=== PATIENT | female | born 1985 | race Caucasian/White ===

== ENCOUNTER → 2017-11-25 10:40 | Outpatient (CLI) | payer OTHER, SELFPAY ==
[2017-11-25 16:21] LABS: Pregnancy, Serum, hCG Quali. NEGATIVE Negative (0-9 Nonpreg)
== END ==
PROVIDERS: Visit Provider Obstetrics & Gynecology
DX: N91.2 Amenorrhea, unspecified (principal)
CPT/HCPCS: 36415; 84703

== ENCOUNTER → 2018-03-17 11:38 | Outpatient (CLI) | payer OTHER, SELFPAY ==
[2018-03-17 19:30] LABS: Follicle Stimulating Hormone 3.5 mIU/mL; Luteinizing Hormone 4.2 mIU/mL; T4 Free Direct 0.86 ng/dL (0.76-1.46)
[2018-03-22 16:28] LABS: HPV Reflexed? NOT INDICATED
== END ==
PROVIDERS: Visit Provider Obstetrics & Gynecology
DX: N92.6 Irregular menstruation, unspecified (principal); Z12.4 Encounter for screening for malignant neoplasm of cervix
CPT/HCPCS: 36415; 83001; 83002; 84439; 84443; 88175; G0145

== ENCOUNTER → 2018-04-12 13:10 | Outpatient (CLI) | payer OTHER, SELFPAY ==
[2018-04-12 14:20] LABS: Progesterone Level 22.71 ng/mL (See Comment)
== END ==
PROVIDERS: Visit Provider Obstetrics & Gynecology
DX: N97.0 Female infertility associated with anovulation (principal)
CPT/HCPCS: 36415; 84144

== ENCOUNTER → 2018-05-12 13:37 | Outpatient (CLI) | payer OTHER, SELFPAY ==
[2015-12-04 13:23] VITALS: BMI 17.6
[2018-05-12 18:08] LABS: Progesterone Level 19.17 ng/mL (See Comment)
== END ==
PROVIDERS: Visit Provider Obstetrics & Gynecology
DX: N97.0 Female infertility associated with anovulation (principal)
CPT/HCPCS: 36415; 84144

== ENCOUNTER → 2018-06-14 13:40 | Outpatient (CLI) | payer OTHER, SELFPAY ==
[2015-12-04 13:23] VITALS: BMI 17.6
== END ==
PROVIDERS: Visit Provider Obstetrics & Gynecology
DX: N97.0 Female infertility associated with anovulation (principal)
CPT/HCPCS: 36415

== ENCOUNTER → 2018-07-15 | Outpatient (CLI) | payer OTHER, SELFPAY ==
[2015-12-04 13:23] VITALS: BMI 17.6
[2018-07-15 14:21] LABS: Progesterone Level 21.95 ng/mL (See Comment)
== END | disposition home or self-care (01) ==
LOC: WOBLAB 10:58
PROVIDERS: Visit Provider Obstetrics & Gynecology
DX: N97.0 Female infertility associated with anovulation (principal)
CPT/HCPCS: 36415; 84144

== ENCOUNTER → 2018-08-18 | Outpatient (CLI) | payer OTHER, SELFPAY ==
[2018-08-18 11:25] LABS: Progesterone Level 14.74 ng/mL (See Comment)
== END | disposition home or self-care (01) ==
LOC: WOBLAB 09:07
PROVIDERS: Visit Provider Obstetrics & Gynecology
DX: N97.0 Female infertility associated with anovulation (principal)
CPT/HCPCS: 36415; 84144

== ENCOUNTER → 2019-02-09 10:51 | Outpatient (CLI) | payer OTHER, SELFPAY ==
[2015-12-04 13:23] VITALS: BMI 17.6
[2019-02-09 15:45] LABS: Chlamydia Trachomatis by PCR Negative (Negative); Neisserai gonorrhoeae by PCR Negative (Negative); Probe Check PASS; Sample Adequacy Control PASS; Specimen Processing Control PASS
== END ==
PROVIDERS: Visit Provider Obstetrics & Gynecology
DX: Z34.81 Encounter for supervision of other normal pregnancy, first trimester (principal); Z11.3 Encounter for screening for infections with a predominantly sexual mode of transmission
CPT/HCPCS: 87491; 87591

== ENCOUNTER → 2019-02-23 11:31 | Outpatient (CLI) | payer OTHER, SELFPAY ==
[2019-02-23 16:06] LABS: Absolute Lymphocyte Count 1.77 X10^3/uL (0.83-4.51); Absolute Neutrophil Count 4.4 X10^3/uL (2.0-7.7); Basophil# 0.06 X10^3/uL; Basophil% 0.9 % (0-1); Eosinophils% 1.5 % (0-5); Hematocrit 42.3 % (37-47); Hemoglobin 13.6 g/dL (12.0-15.0); Lymphocyte # 1.77 X10^3/ul (4.0); Mean Corp Hgb Conc 32.2 g/dL (32-36); Mean Corpuscular Hgb 28.7 pg (27.0-32.0); Mean Corpuscular Volume 89.2 fL (81-99); Mean Platelet Vol. 10.3 fl (6.2-12.0); Monocyte# 0.44 X10^3/uL; Monocyte% 6.5 % (0-10); NRBC Flagged by Analyzer 0 % (0-5); Neutrophil # 4.42 X10^3/uL (2.7-7.7); Platelet Count 325 K/mm3 (150-450); RBC Distribution Width CV 12.5 % (11.6-14.6); RBC Distribution Width SD 41.1 fl (35.1-43.9); Red Blood Count 4.74 M/mm3 (4.2-5.4); White Blood Count 6.8 K/mm3 (4.4-11.0)
[2019-02-23 16:26] LABS: Thyroid Stim Hormone (TSH) 1.04 uIU/mL (0.358-3.74)
[2019-02-23 17:34] LABS: Color, Urine Yellow (Yellow); Glucose, Dipstick Normal (Normal); Ketone-Dipstick Negative (Negative); Leukocyte Esterase-Dipstick 500 /ul (Negative); Nitrite-Dipstick Negative (Negative); Occult Blood-Urine Negative /ul (Negative); Protein-Dipstick Negative (Negative); Urine Bilirubin Dipstick Negative (Negative); Urine Clarity Clear (Clear); Urine Urobilinogen Normal (Normal); Urine pH 6.5 (5.0 - 8.0)
[2019-02-23 17:50] LABS: Amphetamine Urine VISTA NEGATIVE (<1000 ng/mL); Barbiturate Urine VISTA NEGATIVE (< 200 ng/mL); Benzodiazepine Urine VISTA NEGATIVE (< 200 ng/mL); Cocaine Urine VISTA NEGATIVE (< 300 ng/mL); Ecstacy Urine VISTA NEGATIVE (< 500 ng/mL); Methadone Urine VISTA NEGATIVE (< 300 ng/mL); PCP Urine VISTA NEGATIVE (< 25 ng/mL); THC Urine VISTA NEGATIVE (< 50 ng/mL); Vista UDS pH Range 6
[2019-02-24 01:49] LABS: Prenatal RPR NONREACTIVE (NONREACTIVE)
[2019-02-24 10:50] LABS: HIV - WCH Non-Reactive (Nonreactive); Hepatitis B Surface Antigen Non-Reactive (Nonreactive); Hepatitis C Antibody Non-Reactive (Nonreactive)
== END ==
PROVIDERS: Visit Provider Obstetrics & Gynecology
DX: Z34.81 Encounter for supervision of other normal pregnancy, first trimester (principal)
CPT/HCPCS: 36415; 80307; 81002; 84443; 85025; 86703; 86762; 86803; 87340

== ENCOUNTER 2019-03-23 02:33 | Emergency (ER) | payer OTHER, SELFPAY ==
[2019-03-23 02:34] VITALS: BP 119/70; PULSE 71; RESP 18; TEMP 37.1; O2SAT 100; BMI 22.6
[2019-03-23] MEDS: miSOPROStol 200 MCG Tablet 600 MCG PO (03:39)
--- NOTE | 2019-03-23 03:47 | ED.VIS.FEGU ---
History of Present Illness Chief Complaint: Vag Bld, Preg Informant: Patient Narrative: Patient presenting for evaluation due to concern for a miscarriage. Patient reports that she is 13 weeks , a G2, P1. Patient states that over the course of the last 3 days she has had some brown vaginal discharge. She reports that this evening an hour or 2 prior to arrival she had a large gush of fluid, and some bleeding, as well as some pelvic cramping. She does believe that she is passing some clots and/or tissue. Patient has never had a miscarriage in the past. She is unsure about her blood type. Pain is mild with no exacerbating relieving factors. Review of systems otherwise negative. Past Medical History - Allergies and Home Meds Allergies/Adverse Reactions: Allergies sulfamethoxazole [From ] Allergy (Verified 03/23/19 02:38) Hives trimethoprim [From ] Allergy (Verified 03/23/19 02:38) Hives Primary Care Physician: Care Physician,No Primary [Primary Care Provider] - Past Medical History: None Smoking Status: Never smoker Review of Systems All systems negative except as indicated General: Denies: Chills, Fever, Sweats Eyes: Denies: Visual changes - bilaterally, Diplopia ENT: Denies: Rhinorrhea, Sore throat Cardiovascular: Denies: Chest pain, Palpitations Respiratory: Denies: Dyspnea, Cough, Dyspnea on exertion Gastrointestinal: Denies: Abdominal pain, Nausea, Vomiting, Diarrhea, Melena, Hematochezia Genitourinary: Reports: - - Vaginal discharge and loss of fluid, passage of clots and possibly tissue Musculoskeletal: Denies: Back pain, Extremity Pain Skin: Denies: Rash, Wounds Neurological: Denies: Headache, Weakness, Numbness Physical Exam Vital Signs/Narrative: Vital Signs Temp Pulse Resp BP Pulse Ox 03/23/19 02:34 98.7 F 71 18 119/70 100 Inital Vital Signs reviewed: Yes General: Well nourished, Well developed Head: Normocephalic, Atraumatic Eyes: Perrl, EOMI ENT: Moist mucous membranes, No rhinorrhea Neck: Supple, Nontender Cardiovascular: Regular rate, Regular rhythm, No murmurs Respiratory: No distress, CTA bilaterally, Chest nontender Abdomen: Tender - Very minimal suprapubic tenderness with mild predominance to the left, no guarding or rebound : Speculum exam: Normal external genitalia, No vaginal lesions, No vaginal discharge, No blood in vault, No active bleeding Bimanual exam: No cervical motion tenderness, Os closed, Normal size uterus, Nontender uterus Back: Nontender, Normal Inspection Extremities: Nontender, No edema Skin: Normal color, No rash Neurological: Alert, Oriented x3, Cranial nerves II-XII grossly intact, Normal Strength, Normal Sensation Psychological: Normal affect Diagnostic/Tx/Re-eval - Medical Decision/Diagnostic Studies Patient presented with symptomatology that would be concerning for the possibility of a miscarriage. I confirmed the patient's blood type and it is a positive. Quantitative hCG is sent and is pending. I performed to bedside ultrasounds to confirm diagnosis, and ultimately saw a thickened endometrium with some heterogeneous fluid within the endometrium as well as the vaginal canal but no evidence of a 13-week gestation. This is consistent with a miscarriage. I discussed the patient's case on the telephone with covering [employer] AUT[employer] ARCHITECT Dr. Chavez. She recommended administering Cytotec to the patient which was given in the emergency department. Patient already has follow-up with the hooking machine operator tomorrow, she was recommended to keep this. She was informed of signs and symptoms for which to return to the emergency department. She voiced understanding of this and the patient was discharged. Disposition: Home ED Disposition - Plan for ED Patient: Disposition: Home or Assisted Living Diagnosis: Miscarriage Instructions: Miscarriage Referrals: Zhane Valencia MD [STAFF PHYSICIAN] - Keep Mena appointment
[2019-03-23 03:48] LABS: hCG Titer Quant., Serum 948 mIU/mL (1-3)
[2019-03-23 04:12] VITALS: PULSE 70; RESP 16; O2SAT 98
== END 2019-03-23 04:00 | disposition home or self-care (01) ==
PROVIDERS: Emergency Provider Emergency Medicine
DX: O03.9 Complete or unspecified spontaneous abortion without complication (principal)
CPT/HCPCS: 84702; 99283; A4216

== ENCOUNTER → 2019-03-28 10:43 | Outpatient (CLI) | payer OTHER, SELFPAY ==
[2019-03-23 02:34] VITALS: BMI 22.6
[2019-03-28 14:29] LABS: hCG Titer Quant., Serum 58 mIU/mL (1-3)
== END ==
PROVIDERS: Visit Provider Obstetrics & Gynecology
DX: O03.9 Complete or unspecified spontaneous abortion without complication (principal)
CPT/HCPCS: 36415; 84702

== ENCOUNTER → 2019-04-04 11:07 | Outpatient (CLI) | payer OTHER, SELFPAY ==
[2019-03-23 02:34] VITALS: BMI 22.6
[2019-04-04 12:40] LABS: hCG Titer Quant., Serum 13 mIU/mL (1-3)
== END ==
PROVIDERS: Visit Provider Obstetrics & Gynecology
DX: Z87.59 Personal history of other complications of pregnancy, childbirth and the puerperium (principal)
CPT/HCPCS: 36415; 84702

== ENCOUNTER → 2019-04-14 11:25 | Outpatient (CLI) | payer OTHER, SELFPAY ==
[2019-03-23 02:34] VITALS: BMI 22.6
[2019-04-14 13:55] LABS: hCG Titer Quant., Serum 5 mIU/mL (1-3)
== END ==
PROVIDERS: Visit Provider Obstetrics & Gynecology
DX: O02.1 Missed abortion (principal)
CPT/HCPCS: 36415; 84702

== ENCOUNTER → 2019-07-19 | Outpatient (CLI) | payer OTHER, SELFPAY ==
[2019-07-19 20:01] LABS: Chlamydia Trachomatis by PCR Negative (Negative); Neisserai gonorrhoeae by PCR Negative (Negative); Probe Check PASS; Sample Adequacy Control PASS; Specimen Processing Control PASS
== END | disposition home or self-care (01) ==
PROVIDERS: Referring Provider Obstetrics & Gynecology; Visit Provider Obstetrics & Gynecology
DX: Z34.81 Encounter for supervision of other normal pregnancy, first trimester (principal); Z11.3 Encounter for screening for infections with a predominantly sexual mode of transmission
CPT/HCPCS: 87491; 87591

== ENCOUNTER → 2019-08-10 14:10 | Outpatient (CLI) | payer SELFPAY ==
[2019-08-10 14:30] LABS: Absolute Lymphocyte Count 2.06 X10^3/uL (0.83-4.51); Absolute Neutrophil Count 5.1 X10^3/uL (2.0-7.7); Basophil# 0.03 X10^3/uL; Basophil% 0.4 % (0-1); Eosinophil# 0.06 X10^3/uL; Eosinophils% 0.8 % (0-5); Hematocrit 37.8 % (37-47); Hemoglobin 12.3 g/dL (12.0-15.0); Lymphocyte # 2.06 X10^3/ul (4.0); Lymphocyte % 26.6 % (19-41); Mean Corp Hgb Conc 32.5 g/dL (32-36); Mean Corpuscular Hgb 28.7 pg (27.0-32.0); Mean Corpuscular Volume 88.1 fL (81-99); Mean Platelet Vol. 10.4 fl (6.2-12.0); Monocyte# 0.48 X10^3/uL; Monocyte% 6.2 % (0-10); NRBC Flagged by Analyzer 0 % (0-5); Neutrophil % 65.9 % (47-70); Platelet Count 306 K/mm3 (150-450); RBC Distribution Width SD 41.7 fl (35.1-43.9); Red Blood Count 4.29 M/mm3 (4.2-5.4); White Blood Count 7.7 K/mm3 (4.4-11.0)
[2019-08-10 14:37] LABS: Color, Urine Straw (Yellow); Glucose, Dipstick Normal (Normal); Ketone-Dipstick Negative (Negative); Leukocyte Esterase-Dipstick 500 /ul (Negative); Nitrite-Dipstick Negative (Negative); Occult Blood-Urine Negative /ul (Negative); Protein-Dipstick Negative (Negative); Urine Bilirubin Dipstick Negative (Negative); Urine Clarity Clear (Clear); Urine Urobilinogen Normal (Normal)
[2019-08-10 14:47] LABS: Amphetamine Urine VISTA NEGATIVE (<1000 ng/mL); Barbiturate Urine VISTA NEGATIVE (< 200 ng/mL); Benzodiazepine Urine VISTA NEGATIVE (< 200 ng/mL); Cocaine Urine VISTA NEGATIVE (< 300 ng/mL); Ecstacy Urine VISTA NEGATIVE (< 500 ng/mL); Methadone Urine VISTA NEGATIVE (< 300 ng/mL); PCP Urine VISTA NEGATIVE (< 25 ng/mL); THC Urine VISTA NEGATIVE (< 50 ng/mL); Vista UDS pH Range 6
[2019-08-10 15:19] LABS: Thyroid Stim Hormone (TSH) 1.31 uIU/mL (0.358-3.74)
[2019-08-10 16:13] LABS: HIV - WCH Non-Reactive (Nonreactive); Hepatitis B Surface Antigen Non-Reactive (Nonreactive); Hepatitis C Antibody Non-Reactive (Nonreactive); Rubella IgG 286.7 IU/mL
[2019-08-11 03:39] LABS: Prenatal RPR NONREACTIVE (NONREACTIVE)
== END ==
PROVIDERS: Visit Provider Obstetrics & Gynecology
DX: Z34.81 Encounter for supervision of other normal pregnancy, first trimester (principal)
CPT/HCPCS: 80307; 81002; 84443; 85025; 86703; 86762; 86803; 87340

== ENCOUNTER → 2019-08-26 | Outpatient (CLI) | payer SELFPAY ==
[2019-08-26 17:25] LABS: Bacteria 0 SEEN /hpf (None Seen); Mucous, Urine 0 SEEN /hpf (<or=2+); Red Blood Cells-Urine 0 SEEN /hpf (0-5)
[2019-08-26 18:09] LABS: Color, Urine Yellow (Yellow); Glucose, Dipstick Normal (Normal); Ketone-Dipstick Negative (Negative); Leukocyte Esterase-Dipstick 25 /ul (Negative); Nitrite-Dipstick Negative (Negative); Occult Blood-Urine Negative /ul (Negative); Protein-Dipstick Negative (Negative); Urine Bilirubin Dipstick Negative (Negative); Urine Clarity Clear (Clear); Urine Urobilinogen Normal (Normal)
[2019-08-26 18:48] LABS: Squamous Epithelial Cells - UA 0-5 SEEN /hpf (5-10); White Blood Cells 0-5 SEEN /hpf (0-5)
== END | disposition home or self-care (01) ==
LOC: LABSPEC 15:39
DX: Z34.81 Encounter for supervision of other normal pregnancy, first trimester (principal); R30.0 Dysuria
CPT/HCPCS: 81001; 87086

== ENCOUNTER → 2019-09-07 | Outpatient (CLI) | payer OTHER, SELFPAY ==
[2019-09-07 17:50] LABS: Bacteria 0 SEEN /hpf (None Seen); Mucous, Urine 0 SEEN /hpf (<or=2+); Red Blood Cells-Urine 0 SEEN /hpf (0-5); White Blood Cells 0 SEEN /hpf (0-5)
[2019-09-07 18:13] LABS: Color, Urine Yellow (Yellow); Glucose, Dipstick Normal (Normal); Ketone-Dipstick Negative (Negative); Leukocyte Esterase-Dipstick Negative /ul (Negative); Nitrite-Dipstick Negative (Negative); Occult Blood-Urine Negative /ul (Negative); Protein-Dipstick Negative (Negative); Urine Bilirubin Dipstick Negative (Negative); Urine Clarity Clear (Clear); Urine Urobilinogen Normal (Normal)
[2019-09-07 18:39] LABS: Squamous Epithelial Cells - UA 0-5 SEEN /hpf (5-10)
== END | disposition home or self-care (01) ==
PROVIDERS: Visit Provider Obstetrics & Gynecology
DX: Z34.82 Encounter for supervision of other normal pregnancy, second trimester (principal)
CPT/HCPCS: 81001; 87086; 87088

== ENCOUNTER → 2019-11-28 10:50 | Outpatient (CLI) | payer OTHER, SELFPAY ==
[2019-11-28 16:05] LABS: Hematocrit 30.5 % (37-47); Hemoglobin 9.8 g/dL (12.0-15.0); Mean Corp Hgb Conc 32.1 g/dL (32-36); Mean Corpuscular Hgb 31.2 pg (27.0-32.0); Mean Corpuscular Volume 97.1 fL (81-99); Mean Platelet Vol. 9.8 fl (6.2-12.0); Platelet Count 274 K/mm3 (150-450); RBC Distribution Width CV 14.3 % (11.6-14.6); Red Blood Count 3.14 M/mm3 (4.2-5.4); White Blood Count 8.4 K/mm3 (4.4-11.0)
[2019-11-28 16:11] LABS: Glucose Challenge Gest 1H 50g 117 mg/dL (70-140)
== END ==
PROVIDERS: Visit Provider Obstetrics & Gynecology
DX: Z34.82 Encounter for supervision of other normal pregnancy, second trimester (principal)
CPT/HCPCS: 36415; 82950; 85027

== ENCOUNTER 2020-01-16 16:24 | Outpatient (CLI) | payer OTHER, SELFPAY ==
[2020-01-16 16:48] VITALS: BMI 24.5
--- NOTE | 2020-01-16 17:02 | OB.TRI.PN_ITS ---
Progress Notes Date of Service: 01/16/20 Progress Note: CC: NST HPI: 34 yo at 33/4w di/di twins presenting for NST for BPP 6/8 for baby B, BPP 8/8 for A. complicated by: di/di twins with polyhydramnios OBHx: G1: 39w G2: 13w SAB G3: current Medical Hx: Denies Surgical Hx: tonsillectomy and adenoidectomy, tympanostomy tube Medications: PNV, magnesium Allergies: bactrim Objective: PE per RN NST: Baby A: 140/mod lilly/+accel/no decel Baby B: 145/mod lilly/+accel/no decel [place]: quiet A/P: yo at 33/4w di/di twins presenting for NST for BPP 6/8 for baby B, BPP 8/8 for A. Total NST Baby A 12/23, baby B 10/23. Follow up with routine visit BPP/visit on .
== END 2020-01-16 17:01 | disposition home or self-care (01) ==
LOC: WPOUT 16:25 → OBT 16:25
PROVIDERS: Referring Provider Student in an Organized Health Care Education/Training Program; Visit Provider Student in an Organized Health Care Education/Training Program
DX: O40.3XX0 Polyhydramnios, third trimester, not applicable or unspecified (principal); O30.043 Twin pregnancy, dichorionic/diamniotic, third trimester; Z3A.33 33 weeks gestation of pregnancy
CPT/HCPCS: 59025; 59050; 99218; G0378

== ENCOUNTER 2020-01-19 12:35 | Outpatient (CLI) | payer SELFPAY ==
[2020-01-19 12:56] VITALS: BP 112/72; PULSE 86; TEMP 36.7; O2SAT 99
[2020-01-19 13:00] VITALS: BMI 24.3
[2020-01-19 14:30] VITALS: RESP 18
--- NOTE | 2020-01-20 08:37 | OB.TRI.NOTE ---
History of Present Illness Date of Service: 01/19/20 Was patient seen by the physician?: No Reason For Visit: NST FOR TWINS Date of Service: 01/19/20 Final EMMANUEL: 02/28/20 Gestational age: 34 Weeks and 3 Days History of Present Illness: 34-year-old with twins. Seen in office today for ultrasound. Unsure heart tone baseline. Sent over for extended monitoring and NST. Allergies sulfamethoxazole [From ] Allergy (Verified 01/19/20 13:30) Hives trimethoprim [From Novra] Allergy (Verified 01/19/20 13:30) Hives Physical Exam Vitals: Vital Signs Temp Pulse Resp BP Pulse Ox 98.1 F 86 18 112/72 99 01/19/20 12:56 01/19/20 12:56 01/19/20 14:30 01/19/20 12:56 01/19/20 12:56 NST - FHR Rate Baby A Baseline: 130 Variability:: Moderate Accelerations:: 15 x 15 Decelerations:: None NST Reactive:: Yes Uterine Activity:: Intermittent - FHR Rate Baby B Baseline: 140 Variability:: Moderate Accelerations:: 15 x 15 Decelerations:: None NST Reactive:: Yes Uterine Activity:: Intermittent Impression/Plan 34-year-old G3, P1 at 34 weeks and 2 days with twin sent from office with ultrasound today in office and uncertain baseline heart rates. After extended monitoring and reactive NST all reassuring. Okay to discharge home
== END 2020-01-19 14:30 | disposition home or self-care (01) ==
LOC: WPOUT 12:41 → WP 12:41
PROVIDERS: Visit Provider Obstetrics & Gynecology
DX: O30.003 Twin pregnancy, unspecified number of placenta and unspecified number of amniotic sacs, third trimester (principal); Z3A.34 34 weeks gestation of pregnancy
CPT/HCPCS: 59025; 59050; 99218; G0378

== ENCOUNTER 2020-01-21 09:57 | Outpatient (CLI) | payer SELFPAY ==
[2020-01-21 10:08] VITALS: BP 100/59; PULSE 88; TEMP 36.6; O2SAT 98
[2020-01-21 10:15] VITALS: BMI 24.3
--- NOTE | 2020-02-08 09:14 | OB.TRI.NOTE ---
History of Present Illness Was patient seen by the physician?: No Reason For Visit: NST FOR TWINS Date of Service: 01/21/20 Final EMMANUEL: 02/28/20 Final EMMANUEL Source: US <20 weeks Gestational age: 34 Weeks and 4 Days History of Present Illness: 34+ week intrauterine presents for routine nonstress test for twins. Allergies sulfamethoxazole [From Novra] Allergy (Verified 01/31/20 19:13) Hives trimethoprim [From Novra] Allergy (Verified 01/31/20 19:13) Hives Physical Exam Vitals: Vital Signs Temp Pulse BP Pulse Ox 97.9 F 88 100/59 L 98 01/21/20 10:08 01/21/20 10:08 01/21/20 10:08 01/21/20 10:08 NST - FHR Rate Baby A NST Reactive:: Yes FHR Category:: Category I - FHR Rate Baby B NST Reactive:: Yes FHR Category:: Category I Impression/Plan 34+ week twin gestation with reactive nonstress test x2. Continuing present care.
== END 2020-01-21 10:45 | disposition home or self-care (01) ==
PROVIDERS: Visit Provider Obstetrics & Gynecology
DX: O30.003 Twin pregnancy, unspecified number of placenta and unspecified number of amniotic sacs, third trimester (principal); Z3A.34 34 weeks gestation of pregnancy
CPT/HCPCS: 59025; 59050; 99218; G0378

== ENCOUNTER 2020-01-30 15:55 | Outpatient (CLI) | payer SELFPAY ==
[2020-01-30 16:15] VITALS: BP 108/65; PULSE 78; TEMP 36.9; O2SAT 100
[2020-01-30 16:29] VITALS: BP 112/64; PULSE 74
[2020-01-30 16:35] VITALS: BMI 25.7
[2020-01-30 16:44] VITALS: BP 108/65; PULSE 78
[2020-01-30 17:08] LABS: Hematocrit 34.5 % (37-47); Hemoglobin 11.2 g/dL (12.0-15.0); Mean Corp Hgb Conc 32.5 g/dL (32-36); Mean Corpuscular Hgb 30.9 pg (27.0-32.0); Mean Corpuscular Volume 95.3 fL (81-99); Mean Platelet Vol. 10.3 fl (6.2-12.0); Platelet Count 152 K/mm3 (150-450); RBC Distribution Width CV 14.2 % (11.6-14.6); RBC Distribution Width SD 49.6 fl (35.1-43.9); Red Blood Count 3.62 M/mm3 (4.2-5.4); White Blood Count 5.6 K/mm3 (4.4-11.0)
[2020-01-30 17:14] LABS: Protein, Urine (Random) 49.3 mg/dL (<11.9); Protein:Creat Ratio 404 mg/g CRE (0-200)
--- NOTE | 2020-01-30 17:59 | PCM.PN.BLA ---
Progress Note Di/di twins, poly at 35/6w. Presented to triage for face and LE edema. Denied ALDRICH, vision changes, chest pain, RUQ pain, nausea/emesis. Reported some LUQ discomfort. complicated by: di/di twins with poly, AMA OB Hx: G1: 39 , 2w unilateral leg paralysis after, resolved spontaneously G2: SAB G3 current Medical Hx: denies Surgical Hx: T&A, tympanostomy tubes Medications: PNV, magnesium Allergies: Sulfa Social: denies tobacco, alcohol, drugs PE: Vital Signs Temp Pulse BP Pulse Ox 01/30/20 16:44 78 108/65 01/30/20 16:29 74 112/64 01/30/20 16:15 98.5 F 78 108/65 100 Per RN FHR A: 135/mod lilly/+accel/no decel FHR B: 140/mod lilly/+accel/no decel [place]: irregular A/p 35/6w twins presenting with swelling. No other signs/symptoms of pre-eclampsia. Vitals stable, not hypertensive. +Proteinuria and slightly elevated AST. Creatinine and platelets, LDH normal. Send home with precautions. Start 24 hr urine, will return tomorrow for repeat labs, BP check, NST. STROKE Vital Signs/Narrative: Vital Signs Temp Pulse BP Pulse Ox 01/30/20 16:44 78 108/65 01/30/20 16:29 74 112/64 01/30/20 16:15 98.5 F 78 108/65 100
[2020-01-30 18:03] LABS: ALB/GLOB Ratio 0.7 RATIO (0.9-2.4); AST(SGOT) 49 U/L (15-37); Alanine Aminotransfer ALT/SGPT 54 U/L (13-56); Albumin, Serum 2.7 g/dL (3.2-5.0); Alkaline Phosphatase 214 U/L (45-117); Anion Gap 8 (5-15); BUN 9 mg/dL (7-18); BUN/Creat Ratio 13.8 RATIO (10-20); Calcium,Total 8.3 mg/dL (8.5-10.1); Chloride 108 mmol/L (98-107); Creatinine, Serum 0.65 mg/dL (0.55-1.02); EST Glomerular Filtration Rate 109 mL/min (>60); Est Glom Filt Rate - Afr Amer 132 mL/min (>60); Estimated Creatinine Clearance 116.36 ml/min; Globulin 3.7 g/dL (2.2-4.2); Glucose 63 mg/dL (74-106); LDH 172 U/L (84-246); Potassium 4.4 mmol/L (3.5-5.1); Protein, Total 6.4 g/dL (6.4-8.2); Sodium Level 139 mmol/L (136-145)
[2020-01-31 18:51] LABS: Protein, Urine (Random) 36.5 mg/dL (<11.9); Protein:Creat Ratio 279 mg/g CRE (0-200)
== END 2020-01-30 18:25 | disposition home or self-care (01) ==
LOC: WPOUT 16:07 → WP 16:07
PROVIDERS: Visit Provider Student in an Organized Health Care Education/Training Program
DX: O30.043 Twin pregnancy, dichorionic/diamniotic, third trimester (principal); Z3A.00 Weeks of gestation of pregnancy not specified
CPT/HCPCS: 36415; 59025; 59050; 80053; 82570; 83615; 84156; 85027; 99218; G0378

== ENCOUNTER 2020-01-31 21:26 | Inpatient (IN) | payer SELFPAY ==
[2020-01-30 16:35] VITALS: BMI 25.7
[2020-01-31 18:44] VITALS: BMI 25.3
[2020-01-31] MEDS: Betamethasone/Betamethasone 30 MG/5 ML Vial 12 MG IM (18:50)
[2020-01-31 19:02] VITALS: BP 107/62; PULSE 81
[2020-01-31 19:09] LABS: Hematocrit 33.3 % (37-47); Mean Corpuscular Hgb 31.6 pg (27.0-32.0); Mean Corpuscular Volume 95.7 fL (81-99); Mean Platelet Vol. 10.4 fl (6.2-12.0); Platelet Count 153 K/mm3 (150-450); RBC Distribution Width CV 14.4 % (11.6-14.6); RBC Distribution Width SD 50.3 fl (35.1-43.9); Red Blood Count 3.48 M/mm3 (4.2-5.4); White Blood Count 5.4 K/mm3 (4.4-11.0)
[2020-01-31 19:17] VITALS: BP 122/66; PULSE 92
[2020-01-31 19:30] LABS: ALB/GLOB Ratio 0.8 RATIO (0.9-2.4); AST(SGOT) 54 U/L (15-37); Alanine Aminotransfer ALT/SGPT 62 U/L (13-56); Albumin, Serum 2.7 g/dL (3.2-5.0); Alkaline Phosphatase 218 U/L (45-117); Anion Gap 7 (5-15); BUN 11 mg/dL (7-18); BUN/Creat Ratio 15.1 RATIO (10-20); Calcium,Total 8.5 mg/dL (8.5-10.1); Chloride 111 mmol/L (98-107); Creatinine, Serum 0.73 mg/dL (0.55-1.02); EST Glomerular Filtration Rate 96 mL/min (>60); Est Glom Filt Rate - Afr Amer 116 mL/min (>60); Globulin 3.5 g/dL (2.2-4.2); Glucose 77 mg/dL (74-106); LDH 165 U/L (84-246); Potassium 3.7 mmol/L (3.5-5.1); Protein, Total 6.2 g/dL (6.4-8.2); Sodium Level 141 mmol/L (136-145)
[2020-01-31 19:32] VITALS: BP 118/70; PULSE 83
[2020-01-31 19:47] VITALS: BP 119/67; PULSE 88; TEMP 36.5; O2SAT 100
[2020-01-31 20:02] VITALS: BP 107/55; PULSE 82
--- NOTE | 2020-01-31 20:49 | PCM.HPOB.BLA ---
History and Physical Date of Admission: 01/31/20 34 yo at 36/0w, with EMMANUEL 02/28/20 by 11w US, presents for follow up labs and monitoring. Patient was seen yesterday for swelling, vitals within normal limits. However AST was slightly elevated at 49. Patient was sent home with 24 hour protein evaluation. She returned to the office for increased swelling. BPP was done which was 8/8 for both twins (vertex/transverse) with JESUS ALBERTO of about 10 and 9 for A and B respectively. She was then sent to labor and delivery to complete 24 hr urine and repeat labs. Blood pressures have been within normal limits during both stays. Today AST is slightly more elevated, as is ALT. Creatinine and platelets stable. Admit for monitoring at this time and repeat labs in AM. Denies VB, LOF, regular contractions. +FM. Denies ALDRICH, vision changes, chest pain, nausea/emesis. Reports upper abdominal pain that was originally left sided, but now is also right sided at night time when she tries to lay down and sleep. Wakes up sore in morning. This is complicated by: AMA, di/di twins with poly Obstetrical History G1: FT , had 2w of right sided LE paralysis after that resolved spontaneously G2: SAB G3: current Past Medical History Denies Medications PNV Past Surgical History Tympanostomy tubes, tonsillectomy and adenoidectomy Social History Tobacco use: denies Alcohol use: denies Illicit drug use: denies Labs Blood type: A pos Rubella: immune Hep B: neg HIV: neg RPR: nonreactive GBS: unknown, pending collection tonight Allergies Sulfa Review of Systems General: alert and oriented HEENT: denies change of vision Heart/lungs: denies CP, SOB GI: denies nausea, vomiting, dysuria, diarrhea MSK: denies calf pain, tenderness Physical Exam Vital Signs Temp Pulse BP Pulse Ox 01/31/20 20:02 82 107/55 L 01/31/20 19:47 97.7 F L 88 119/67 100 01/31/20 19:32 83 118/70 01/31/20 19:17 92 122/66 H 01/31/20 19:02 81 107/62 General: a&o x3, NAD HEENT: normocephalic, atraumatic Cardio: no JVD Resp: no increased work in breathing Abdomen: soft, gravid, nontender Extremities: minimal edema Neuro: CN 2-12 grossly intact, DTRs 2/4 bilateral, no clonus FHTA: 140/mod paulina/+accel/no decel FHT B: 135/mod paulina/+accel/no decel [place]: irregular BPP earlier today: 10/21 for both twins. Vertex/transverse. JESUS ALBERTO A about / 9. Labs Laboratory Results - last 24 hr 01/31/20 01/31/20 01/31/20 18:35 18:35 18:35 WBC 5.4 RBC 3.48 L Hgb 11.0 L Hct 33.3 L MCV 95.7 MCH 31.6 MCHC 33.0 RDW Std Deviation 50.3 H RDW Coeff of Paulina 14.4 Plt Count 153 MPV 10.4 Sodium 141 Potassium 3.7 Chloride 111 H Carbon Dioxide 23.0 Anion Gap 7 BUN 11 Creatinine 0.73 Estim Creat Clear Calc 103.60 Est GFR (MDRD) Af Amer 116 Est GFR (MDRD) Non-Af 96 BUN/Creatinine Ratio 15.1 Glucose 77 Calcium 8.5 Total Bilirubin 0.30 AST 54 H ALT 62 H Alkaline Phosphatase 218 H Ammonia 18.0 Lactate Dehydrogenase 165 Total Protein 6.2 L Albumin 2.7 L Globulin 3.5 Albumin/Globulin Ratio 0.8 L Assessment & Plan 34 yo at 36/0w, EMMANUEL 02/28/20 by 11w US, admitted for monitoring. -Patient has elevated LFTs, slightly more than yesterday, however fairly stable. AST/ALT on 01/29: 49/54. Today 01/30: AST/ALT 54/62. Creatinine stable, as well as platelet level. Ammonia was drawn today which was within normal limits. No evidence of hemolysis or hyperbilirubinemia. 24 hour urine pending at this time. Hepatitis panel also pending. -Blood pressures are stable, no other signs or symptoms of pre-eclampsia. Patient is high risk for development as she has twin gestation. -Will plan to admit for overnight observation for blood pressure, repeat lab work in am.
[2020-01-31 23:15] LABS: Group B Strep DNA By PCR Negative (Negative); Internal Control PASS; Probe Check PASS; Specimen Processing Control PASS
[2020-02-01] VITALS (82 sets, daily range): BP systolic 99–122; BP diastolic 54–66; PULSE 75–110; RESP 14–18; TEMP 36.4–37.1; O2SAT 97–100
--- NOTE | 2020-02-01 01:00 | NURSING ---
this RN gave report to ashley alvarado RN. that RN to assume care of pt at this time.
[2020-02-01 05:36] LABS: Absolute Lymphocyte Count 0.78 X10^3/uL (0.83-4.51); Absolute Neutrophil Count 4.9 X10^3/uL (2.0-7.7); Basophil# 0.03 X10^3/uL; Basophil% 0.5 % (0-1); Hematocrit 33.8 % (37-47); Lymphocyte # 0.78 X10^3/ul (4.0); Mean Corp Hgb Conc 32.5 g/dL (32-36); Mean Corpuscular Hgb 31.3 pg (27.0-32.0); Mean Platelet Vol. 10.3 fl (6.2-12.0); Monocyte# 0.17 X10^3/uL; Monocyte% 2.8 % (0-10); NRBC Flagged by Analyzer 0 % (0-5); Neutrophil # 4.92 X10^3/uL (2.7-7.7); Neutrophil % 82.4 % (47-70); Platelet Count 141 K/mm3 (150-450); RBC Distribution Width CV 14.4 % (11.6-14.6); RBC Distribution Width SD 50.1 fl (35.1-43.9); Red Blood Count 3.52 M/mm3 (4.2-5.4)
[2020-02-01 05:44] LABS: Prothrombin Time (Protime)PT. 12.2 SECONDS (11.7-14.9)
[2020-02-01 05:45] LABS: Fibrinogen 395 mg/dl (203-444); Partial Thromboplast Time 32.4 Seconds (24.1-36.2)
[2020-02-01 05:52] LABS: ALB/GLOB Ratio 0.8 RATIO (0.9-2.4); AST(SGOT) 72 U/L (15-37); Alanine Aminotransfer ALT/SGPT 73 U/L (13-56); Albumin, Serum 2.7 g/dL (3.2-5.0); Alkaline Phosphatase 221 U/L (45-117); Anion Gap 8 (5-15); BUN 11 mg/dL (7-18); BUN/Creat Ratio 16.5 RATIO (10-20); Calcium,Total 8.3 mg/dL (8.5-10.1); Chloride 109 mmol/L (98-107); Creatinine, Serum 0.67 mg/dL (0.55-1.02); EST Glomerular Filtration Rate 106 mL/min (>60); Est Glom Filt Rate - Afr Amer 128 mL/min (>60); Estimated Creatinine Clearance 112.88 ml/min; Globulin 3.5 g/dL (2.2-4.2); Glucose 101 mg/dL (74-106); LDH 172 U/L (84-246); Potassium 3.8 mmol/L (3.5-5.1); Protein, Total 6.2 g/dL (6.4-8.2); Sodium Level 139 mmol/L (136-145)
--- NOTE | 2020-02-01 08:55 | PCM.PN.OB ---
Subjective: Patient +FM. Reports contractions. No LOF, VB. reports tingling that started this morning in arms and legs. No ALDRICH, vision changes, chest pain, dyspnea, nausea/emesis. No RUQ pain. Abdomen sore as it is every morning, all over. - Physical Exam Vitals/I&O's: Vital Signs Temp Pulse BP Pulse Ox 98.2 F 78 107/64 100 02/01/20 04:00 02/01/20 04:00 02/01/20 04:00 02/01/20 04:00 Weight: 73.482 kg Body Mass Index (BMI) 25.3 General: Oriented x3, No apparent distress HEENT: Atraumatic, Normocephalic Neck: Supple Lungs: Normal air movement Cardiovascular: Regular rate Abdomen: Soft, Non Tender - Gravid, no RUQ pain Extremities: Edema - minimal Skin: No rashes Neurological: Cranial nerves II-XII grossly intact, Deep Tendon Reflexes 2+/4 and Symmetrical Psych/Mental Status: Normal Affect, Appropriate Laboratory Results 01/31/20 18:35: WBC 5.4, RBC 3.48 L, Hgb 11.0 L, Hct 33.3 L, MCV 95.7, MCH 31.6, MCHC 33.0, RDW Std Deviation 50.3 H, RDW Coeff of Paulina 14.4, Plt Count 153, MPV 10.4 01/31/20 18:35: Sodium 141, Potassium 3.7, Chloride 111 H, Carbon Dioxide 23.0, Anion Gap 7, BUN 11, Creatinine 0.73, Estim Creat Clear Calc 103.60, Est GFR (MDRD) Af Amer 116, Est GFR (MDRD) Non-Af 96, BUN/Creatinine Ratio 15.1, Glucose 77, Calcium 8.5, Total Bilirubin 0.30, AST 54 H, ALT 62 H, Alkaline Phosphatase 218 H, Lactate Dehydrogenase 165, Total Protein 6.2 L, Albumin 2.7 L, Globulin 3.5, Albumin/Globulin Ratio 0.8 L 01/31/20 18:35: Hepatitis A IgM Ab Pending, Hep Bs Antigen Pending, Hep B Core IgM Ab Pending, Hepatitis C Ab (EIA) Pending 01/31/20 18:35: Ammonia 18.0 01/31/20 21:25: Group B Strep DNA Negative, Specimen Comment Not Reportable 02/01/20 05:20: WBC 6.0, RBC 3.52 L, Hgb 11.0 L, Hct 33.8 L, MCV 96.0, MCH 31.3, MCHC 32.5, RDW Std Deviation 50.1 H, RDW Coeff of Paulina 14.4, Plt Count 141 L, MPV 10.3, Immature Gran % (Auto) 1.300 H, Neut % (Auto) 82.4 H, Lymph % (Auto) 13.0 L, [place] % (Auto) 2.8, Eos % (Auto) 0.0, Baso % (Auto) 0.5, Absolute Neuts (auto) 4.9, Absolute Lymphs (auto) 0.78 L, Nucleated RBC % 0 02/01/20 05:20: Sodium 139, Potassium 3.8, Chloride 109 H, Carbon Dioxide 22.0, Anion Gap 8, BUN 11, Creatinine 0.67, Estim Creat Clear Calc 112.88, Est GFR (MDRD) Af Amer 128, Est GFR (MDRD) Non-Af 106, BUN/Creatinine Ratio 16.5, Glucose 101, Calcium 8.3 L, Total Bilirubin 0.40, AST 72 H, ALT 73 H, Alkaline Phosphatase 221 H, Lactate Dehydrogenase 172, Total Protein 6.2 L, Albumin 2.7 L, Globulin 3.5, Albumin/Globulin Ratio 0.8 L 02/01/20 05:20: PT 12.2, INR 1.0, APTT 32.4, Fibrinogen 395 Current Medications Ampicillin Sodium 2 gm/ Sodium (Chloride) 100 mls @ 200 mls/hr IV Q4H [facility] Medical Necessity - Tobacco Use Smoking Status: Never smoker Assessment/Plan 34 yo at 36/1w admitted for monitoring overnight. Working diagnosis at this time of pre-eclampsia with severe features based on rising LFTs, with AST borderline twice the upper limit of normal and thrombocytopenia which is trending down. While patient has not had elevated blood pressures, she does have evidence of proteinura with transaminitis and thrombocytopenia. Creatinine has been stable. Coags normal today. Patient is high risk for pre-eclampsia with di/di twin gestation as well. Additionally she has polyhydramnios of both twin A and B (10.18/9.38 respectively on BPP yesterday in office). This setting with worsening thrombocytopenia and transaminitis, will diagnose and treat as severe pre-eclampsia at this time. Patient understands situation, potential NICU stay, and situation with worsening labwork. Patient agrees with plan. -Patient received celestone yesterday, repeat dose will be given tonight. -EFW on 01/22: A 2477g/B 2326g discordance 6% -Today on BSUS: Vertex/Vertex -CE 3 cm, pitocin induction. Discussed at length options for primary section vs induction of labor. Patient aware that she will deliver in OR due to twins. She is aware that she may have vaginal delivery followed by section if needed ( distress or breech presentation of baby B). R/B/A of c/sdiscussed as well. Patient elects for induction. -GBS negative on rapid, culture pending. Will tx with ampicillin until cx is back as she is <37w -Magnesium sulfate to start for seizure prophylaxis. 6 gram bolus, followed by 2g/hr -CBC, CMP q6 hours while in labor -Patient for epidural. -Plan discussed with patient and bedside RN. All questions answered.
[2020-02-01] MEDS: Lactated Ringers 1,000 ML 50 ML IV (10:04)
[2020-02-01] MEDS: Magnesium Sulfate 4gm/100mL 4 GM/100 ML IV.SOLN. IV (10:08)
[2020-02-01 10:25] LABS: Hematocrit 35.2 % (37-47); Hemoglobin 11.5 g/dL (12.0-15.0); Mean Corp Hgb Conc 32.7 g/dL (32-36); Mean Corpuscular Hgb 30.8 pg (27.0-32.0); Mean Corpuscular Volume 94.4 fL (81-99); Mean Platelet Vol. 10.2 fl (6.2-12.0); Platelet Count 167 K/mm3 (150-450); RBC Distribution Width CV 14.3 % (11.6-14.6); RBC Distribution Width SD 49.3 fl (35.1-43.9); Red Blood Count 3.73 M/mm3 (4.2-5.4); White Blood Count 6.3 K/mm3 (4.4-11.0)
[2020-02-01] MEDS: Magnesium Sulfate 4gm/100mL 2 GM/50 ML IV.SOLN. IV (10:28)
[2020-02-01] MEDS: Magnesium Sulfate 20 GM/500 ML BAG IV ×2 (10:39→20:08)
[2020-02-01 10:43] LABS: ALB/GLOB Ratio 0.8 RATIO (0.9-2.4); AST(SGOT) 74 U/L (15-37); Alanine Aminotransfer ALT/SGPT 78 U/L (13-56); Albumin, Serum 2.7 g/dL (3.2-5.0); Alkaline Phosphatase 219 U/L (45-117); Anion Gap 10 (5-15); BUN 10 mg/dL (7-18); BUN/Creat Ratio 14.1 RATIO (10-20); Calcium,Total 8.1 mg/dL (8.5-10.1); Chloride 110 mmol/L (98-107); Creatinine, Serum 0.71 mg/dL (0.55-1.02); EST Glomerular Filtration Rate 99 mL/min (>60); Est Glom Filt Rate - Afr Amer 120 mL/min (>60); Estimated Creatinine Clearance 106.52 ml/min; Globulin 3.4 g/dL (2.2-4.2); Glucose 72 mg/dL (74-106); Potassium 3.8 mmol/L (3.5-5.1); Protein, Total 6.1 g/dL (6.4-8.2); Sodium Level 140 mmol/L (136-145)
[2020-02-01] MEDS: Oxytocin 30 units/NS 500 ml 30 UNITS/500 ML IV.SOLN IV (10:49)
[2020-02-01] MEDS: Lactated Ringers 500 ML 999 ML IV (11:35)
[2020-02-01] MEDS: fentaNYL-bupivacaine (epidural) 100 ML BAG EPIDURAL ×3 (12:33→23:18)
[2020-02-01] MEDS: Ondansetron 4 MG/2 ML Vial IV (14:24)
[2020-02-01 16:36] LABS: Hematocrit 32.8 % (37-47); Hemoglobin 10.5 g/dL (12.0-15.0); Mean Corpuscular Hgb 30.9 pg (27.0-32.0); Mean Corpuscular Volume 96.5 fL (81-99); Mean Platelet Vol. 9.9 fl (6.2-12.0); Platelet Count 166 K/mm3 (150-450); RBC Distribution Width CV 14.4 % (11.6-14.6); RBC Distribution Width SD 50.5 fl (35.1-43.9); White Blood Count 6.5 K/mm3 (4.4-11.0)
[2020-02-01 16:57] LABS: ALB/GLOB Ratio 0.8 RATIO (0.9-2.4); AST(SGOT) 75 U/L (15-37); Alanine Aminotransfer ALT/SGPT 80 U/L (13-56); Albumin, Serum 2.6 g/dL (3.2-5.0); Alkaline Phosphatase 215 U/L (45-117); Anion Gap 10 (5-15); BUN 9 mg/dL (7-18); BUN/Creat Ratio 11.3 RATIO (10-20); Calcium,Total 7.6 mg/dL (8.5-10.1); Chloride 110 mmol/L (98-107); EST Glomerular Filtration Rate 86 mL/min (>60); Est Glom Filt Rate - Afr Amer 104 mL/min (>60); Estimated Creatinine Clearance 94.54 ml/min; Globulin 3.1 g/dL (2.2-4.2); Glucose 101 mg/dL (74-106); Potassium 3.6 mmol/L (3.5-5.1); Protein, Total 5.7 g/dL (6.4-8.2); Sodium Level 139 mmol/L (136-145)
[2020-02-01] MEDS: Lactated Ringers 1,000 ML 200 ML IV ×2 (17:24→23:06)
[2020-02-01 18:12] LABS: Magnesium 6.7 mg/dL (1.6-2.6)
[2020-02-01] MEDS: Betamethasone/Betamethasone 30 MG/5 ML Vial 12 MG IM (18:42)
--- NOTE | 2020-02-01 19:27 | NURSING ---
unable to chart on reflexes, lung sounds and clonus. 1515/1715 lungs cta, all reflexes +2 with no clonus. no c/o headache or visual disturbances.
--- NOTE | 2020-02-01 21:17 | PCM.PN.BLA ---
Progress Note LABOR PROGRESS NOTE Reports blurred vision on the magnesium, but feels relaxed. Denies headache, upper abdominal pain. She is comfortable with her epidural. AVSS GEN - NAD, AAO x 3 FHR A 125, moderate variability, + accelerations, no decelerations FHR B 130, moderate variability, + accelerations, no decelerations TOCO 2/10 min SVE 4.5/50/-3, CEPHALIC DTRs +2 Laboratory Tests 02/01/20 02/01/20 02/01/20 Range/Units 16:20 16:20 10:10 WBC 6.5 (4.4-11.0) K/mm3 RBC 3.40 L (4.2-5.4) M/mm3 Hgb 10.5 L (12.0-15.0) g/dL Hct 32.8 L (37-47) % MCV 96.5 (81-99) fL MCH 30.9 (27.0-32.0) pg MCHC 32.0 (32-36) g/dL RDW Std Deviation 50.5 H (35.1-43.9) fl RDW Coeff of Paulina 14.4 (11.6-14.6) % Plt Count 166 (150-450) K/mm3 MPV 9.9 (6.2-12.0) fl Immature Gran % (Auto) (0.0-0.9) % Neut % (Auto) (47-70) % Lymph % (Auto) (19-41) % [place] % (Auto) (0-10) % Eos % (Auto) (0-5) % Baso % (Auto) (0-1) % Absolute Neuts (auto) (2.0-7.7) X10^3/uL Absolute Lymphs (auto) (0.83-4.51) X10^3/uL Nucleated RBC % (0-5) % PT (11.7-14.9) SECONDS INR APTT (24.1-36.2) Seconds Fibrinogen (203-444) mg/dl Sodium 139 140 (136-145) mmol/L Potassium 3.6 3.8 (3.5-5.1) mmol/L Chloride 110 H 110 H (98-107) mmol/L Carbon Dioxide 19.0 L 20.0 L (21.0-32.0) mmol/L Anion Gap 10 10 (5-15) BUN 9 10 (7-18) mg/dL Creatinine 0.80 0.71 (0.55-1.02) mg/dL Estim Creat Clear Calc 94.54 106.52 ml/min Est GFR (MDRD) Af Amer 104 120 (>60) mL/min Est GFR (MDRD) Non-Af 86 99 (>60) mL/min BUN/Creatinine Ratio 11.3 14.1 (10-20) RATIO Glucose 101 72 L (74-106) mg/dL Calcium 7.6 L 8.1 L (8.5-10.1) mg/dL Magnesium 6.7 H* (1.6-2.6) mg/dL Total Bilirubin 0.30 0.40 (0.20-1.00) mg/dL AST 75 H 74 H (15-37) U/L ALT 80 H 78 H (13-56) U/L Alkaline Phosphatase 215 H 219 H (45-117) U/L Ammonia (11-32) umol/L Lactate Dehydrogenase (84-246) U/L Total Protein 5.7 L 6.1 L (6.4-8.2) g/dL Albumin 2.6 L 2.7 L (3.2-5.0) g/dL Globulin 3.1 3.4 (2.2-4.2) g/dL Albumin/Globulin Ratio 0.8 L 0.8 L (0.9-2.4) RATIO Group B Strep DNA (Negative) Specimen Comment Blood Type Antibody Screen 02/01/20 02/01/20 02/01/20 Range/Units 10:10 10:10 05:20 WBC 6.3 (4.4-11.0) K/mm3 RBC 3.73 L (4.2-5.4) M/mm3 Hgb 11.5 L (12.0-15.0) g/dL Hct 35.2 L (37-47) % MCV 94.4 (81-99) fL MCH 30.8 (27.0-32.0) pg MCHC 32.7 (32-36) g/dL RDW Std Deviation 49.3 H (35.1-43.9) fl RDW Coeff of Paulina 14.3 (11.6-14.6) % Plt Count 167 (150-450) K/mm3 MPV 10.2 (6.2-12.0) fl Immature Gran % (Auto) (0.0-0.9) % Neut % (Auto) (47-70) % Lymph % (Auto) (19-41) % [place] % (Auto) (0-10) % Eos % (Auto) (0-5) % Baso % (Auto) (0-1) % Absolute Neuts (auto) (2.0-7.7) X10^3/uL Absolute Lymphs (auto) (0.83-4.51) X10^3/uL Nucleated RBC % (0-5) % PT 12.2 (11.7-14.9) SECONDS INR 1.0 APTT 32.4 (24.1-36.2) Seconds Fibrinogen 395 (203-444) mg/dl Sodium (136-145) mmol/L Potassium (3.5-5.1) mmol/L Chloride (98-107) mmol/L Carbon Dioxide (21.0-32.0) mmol/L Anion Gap (5-15) BUN (7-18) mg/dL Creatinine (0.55-1.02) mg/dL Estim Creat Clear Calc ml/min Est GFR (MDRD) Af Amer (>60) mL/min Est GFR (MDRD) Non-Af (>60) mL/min BUN/Creatinine Ratio (10-20) RATIO Glucose (74-106) mg/dL Calcium (8.5-10.1) mg/dL Magnesium (1.6-2.6) mg/dL Total Bilirubin (0.20-1.00) mg/dL AST (15-37) U/L ALT (13-56) U/L Alkaline Phosphatase (45-117) U/L Ammonia (11-32) umol/L Lactate Dehydrogenase (84-246) U/L Total Protein (6.4-8.2) g/dL Albumin (3.2-5.0) g/dL Globulin (2.2-4.2) g/dL Albumin/Globulin Ratio (0.9-2.4) RATIO Group B Strep DNA (Negative) Specimen Comment Blood Type A POSITIVE Antibody Screen NEGATIVE 02/01/20 02/01/20 01/31/20 Range/Units 05:20 05:20 21:25 WBC 6.0 (4.4-11.0) K/mm3 RBC 3.52 L (4.2-5.4) M/mm3 Hgb 11.0 L (12.0-15.0) g/dL Hct 33.8 L (37-47) % MCV 96.0 (81-99) fL MCH 31.3 (27.0-32.0) pg MCHC 32.5 (32-36) g/dL RDW Std Deviation 50.1 H (35.1-43.9) fl RDW Coeff of Paulina 14.4 (11.6-14.6) % Plt Count 141 L (150-450) K/mm3 MPV 10.3 (6.2-12.0) fl Immature Gran % (Auto) 1.300 H (0.0-0.9) % Neut % (Auto) 82.4 H (47-70) % Lymph % (Auto) 13.0 L (19-41) % [place] % (Auto) 2.8 (0-10) % Eos % (Auto) 0.0 (0-5) % Baso % (Auto) 0.5 (0-1) % Absolute Neuts (auto) 4.9 (2.0-7.7) X10^3/uL Absolute Lymphs (auto) 0.78 L (0.83-4.51) X10^3/uL Nucleated RBC % 0 (0-5) % PT (11.7-14.9) SECONDS INR APTT (24.1-36.2) Seconds Fibrinogen (203-444) mg/dl Sodium 139 (136-145) mmol/L Potassium 3.8 (3.5-5.1) mmol/L Chloride 109 H (98-107) mmol/L Carbon Dioxide 22.0 (21.0-32.0) mmol/L Anion Gap 8 (5-15) BUN 11 (7-18) mg/dL Creatinine 0.67 (0.55-1.02) mg/dL Estim Creat Clear Calc 112.88 ml/min Est GFR (MDRD) Af Amer 128 (>60) mL/min Est GFR (MDRD) Non-Af 106 (>60) mL/min BUN/Creatinine Ratio 16.5 (10-20) RATIO Glucose 101 (74-106) mg/dL Calcium 8.3 L (8.5-10.1) mg/dL Magnesium (1.6-2.6) mg/dL Total Bilirubin 0.40 (0.20-1.00) mg/dL AST 72 H (15-37) U/L ALT 73 H (13-56) U/L Alkaline Phosphatase 221 H (45-117) U/L Ammonia (11-32) umol/L Lactate Dehydrogenase 172 (84-246) U/L Total Protein 6.2 L (6.4-8.2) g/dL Albumin 2.7 L (3.2-5.0) g/dL Globulin 3.5 (2.2-4.2) g/dL Albumin/Globulin Ratio 0.8 L (0.9-2.4) RATIO Group B Strep DNA Negative (Negative) Specimen Comment Not Reportable Blood Type Antibody Screen 01/31/20 01/31/20 01/31/20 Range/Units 18:35 18:35 18:35 WBC 5.4 (4.4-11.0) K/mm3 RBC 3.48 L (4.2-5.4) M/mm3 Hgb 11.0 L (12.0-15.0) g/dL Hct 33.3 L (37-47) % MCV 95.7 (81-99) fL MCH 31.6 (27.0-32.0) pg MCHC 33.0 (32-36) g/dL RDW Std Deviation 50.3 H (35.1-43.9) fl RDW Coeff of Paulina 14.4 (11.6-14.6) % Plt Count 153 (150-450) K/mm3 MPV 10.4 (6.2-12.0) fl Immature Gran % (Auto) (0.0-0.9) % Neut % (Auto) (47-70) % Lymph % (Auto) (19-41) % [place] % (Auto) (0-10) % Eos % (Auto) (0-5) % Baso % (Auto) (0-1) % Absolute Neuts (auto) (2.0-7.7) X10^3/uL Absolute Lymphs (auto) (0.83-4.51) X10^3/uL Nucleated RBC % (0-5) % PT (11.7-14.9) SECONDS INR APTT (24.1-36.2) Seconds Fibrinogen (203-444) mg/dl Sodium 141 (136-145) mmol/L Potassium 3.7 (3.5-5.1) mmol/L Chloride 111 H (98-107) mmol/L Carbon Dioxide 23.0 (21.0-32.0) mmol/L Anion Gap 7 (5-15) BUN 11 (7-18) mg/dL Creatinine 0.73 (0.55-1.02) mg/dL Estim Creat Clear Calc 103.60 ml/min Est GFR (MDRD) Af Amer 116 (>60) mL/min Est GFR (MDRD) Non-Af 96 (>60) mL/min BUN/Creatinine Ratio 15.1 (10-20) RATIO Glucose 77 (74-106) mg/dL Calcium 8.5 (8.5-10.1) mg/dL Magnesium (1.6-2.6) mg/dL Total Bilirubin 0.30 (0.20-1.00) mg/dL AST 54 H (15-37) U/L ALT 62 H (13-56) U/L Alkaline Phosphatase 218 H (45-117) U/L Ammonia 18.0 (11-32) umol/L Lactate Dehydrogenase 165 (84-246) U/L Total Protein 6.2 L (6.4-8.2) g/dL Albumin 2.7 L (3.2-5.0) g/dL Globulin 3.5 (2.2-4.2) g/dL Albumin/Globulin Ratio 0.8 L (0.9-2.4) RATIO Group B Strep DNA (Negative) Specimen Comment Blood Type Antibody Screen A/P: 34yo @ 36 03/22 wga, IOL for preeclampsia with severe features -No si/sx magnesium toxicity -No si/sx worsening preeclampsia with labs stable -Amniotomy performed with clear fluid -Maternal and statuses reassuring STROKE Vital Signs/Narrative: Vital Signs Temp Pulse Resp BP Pulse Ox 02/01/20 21:16 95 99/54 L 02/01/20 20:15 98.5 F 83 16 106/57 L 99 02/01/20 19:26 98.6 F 100 02/01/20 19:23 90 100 02/01/20 19:22 97.9 F 02/01/20 19:21 88 111/61 02/01/20 19:15 98.6 F 91 18 111/61 100 02/01/20 18:21 85 106/56 L 02/01/20 18:15 98.0 F 85 16 106/56 L 99 02/01/20 17:22 97.9 F 02/01/20 17:20 84 104/56 L 02/01/20 17:19 87 99
[2020-02-02] VITALS (80 sets, daily range): BP systolic 98–148; BP diastolic 54–95; PULSE 64–103; RESP 16–18; TEMP 36.4–37.5; O2SAT 90–100
[2020-02-02] MEDS: miSOPROStol 200 MCG Tablet 1000 MCG RECTAL (02:55)
[2020-02-02] MEDS: Oxytocin 30 units/NS 500 ml 30 UNITS/500 ML IV.SOLN 334 UNITS IV ×2 (03:02→05:30)
--- NOTE | 2020-02-02 03:16 | PCM.OPRPT ---
Vaginal Delivery Maternal Presentation: Medically Indicated Induction This is a 34-year-old female with Di/Di twins complicated by polyhydramnios. Patient was originally seen on 01/29 for increased swelling of face and lower extremities. Patient had blood work done that showed proteinuria along with an elevated AST and thrombocytopenia. Blood pressures were normal. Patient was sent home with a 24-hour urine collection. She was seen the next day in the office for increasing edema and weight gain not feeling well. Patient had a biophysical profile for twins in the office which were both 8 out of 8 demonstrating persistent polyhydramnios of both twins. She was sent to labor and delivery to complete the 24-hour urine and repeat blood work. Repeat blood work demonstrated persistent thrombocytopenia, elevation of both AST and ALT at this time. Creatinine was normal. 24-hour urine protein did not result. Based on this patient was admitted for observation overnight with repeat blood work in the morning. Morning labs showed worsening thrombocytopenia and again increasing LFTs, with AST almost twice the upper limits of normal. Creatinine remained stable. Blood pressures within normal limits. Based on elevating trend of liver enzymes and persistent and worsening thrombocytopenia in the setting of proteinuria with di-/Di twins and polyhydramnios decision at that time was made to make diagnosis of severe preeclampsia and induction was started with Pitocin. Magnesium was also given. Method of Induction: Pitocin Amniotic Membrane Rupture Type: Artificial Amniotic Fluid Description: Clear Final EMMANUEL: 02/28/20 Final EMMANUEL Source: US <20 weeks Gestational age: 36 Weeks and 3 Days Date of Procedure: 02/02/20 Pre-Operative Diagnosis: Diamniotic dichorionic twin, polyhydramnios, severe preeclampsia Post-Operative Diagnosis: Diamniotic dichorionic twin, polyhydramnios, severe preeclampsia Surgery/ Procedure Performed: Spontaneous Vaginal Delivery, Vacuum Assisted Vaginal Delivery Type of Anesthesia: Epidural Description of Procedure: Patient was found to be 10 cm dilated and taken to the operating room. Patient was transferred to the operating table and placed in the dorsolithotomy position. During pushing Dr. Tisha Serrano completed bedside ultrasound to confirm both heart rate and baby position which was vertex/vertex. Baby A delivered spontaneously, baby to maternal chest. Cord clamped and cut. Baby handed to nursing and boat washer for further evaluation. Baby A Apgars 8/8. Bedside ultrasound was completed again to confirm cephalic position of baby B. At that time artificial rupture membranes was completed for clear fluid. descent occurred with maternal pushing efforts. heart rate deceleration into the 50s was noted, patient was tilted left and right, with no resolution. At that time decision for vacuum-assisted vaginal delivery was made. Risks, benefits, alternatives were discussed with the patient. Risks include but not limited to: Maternal laceration, scalp laceration, cephalohematoma, subgaleal hematoma. Patient agreed. head position confirmed. Vacuum placed 2 cm anterior to the posterior fontanelle and centered over the sagittal suture. No maternal tissue was included in the vacuum. Patient had epidural, Poe catheter in place draining bladder. Head was delivered with 1 pull on the vacuum, 1 pop-off. Head delivered followed by body baby to maternal chest. Cord clamped and cut and baby handed to nursing and boat washer for evaluation. Apgars pending for baby B pending per nursing. Venous pH of baby B 7.057, PCO2 83.3, PO2 less than 5. Baby given positive pressure ventilation which was was shortly thereafter stopped. No maternal lacerations noted. EBL 1000. hemorrhage. Cytotec 1000 mcg placed per rectum, extra backup it will run after this first is completed.
[2020-02-02 06:02] LABS: 24 Hour Urine Protein 295.8 mg/24HR (<150 MG/24HR); 24HR. UA Prot. Total Volume 850 mL; Urine Protein (24 Hour) 34.8 mg/dL (<11.9)
[2020-02-02 06:08] LABS: HEPATITIS B SURFACE AG Negative (Negative); Hepatitis A IgM Antibody Negative (Negative); Hepatitis B Core AB IgM Negative (Negative)
[2020-02-02 06:11] LABS: Hematocrit 32.1 % (37-47); Hemoglobin 10.4 g/dL (12.0-15.0); Mean Corp Hgb Conc 32.4 g/dL (32-36); Mean Corpuscular Hgb 31.3 pg (27.0-32.0); Mean Corpuscular Volume 96.7 fL (81-99); Mean Platelet Vol. 10.4 fl (6.2-12.0); Platelet Count 194 K/mm3 (150-450); RBC Distribution Width CV 14.1 % (11.6-14.6); RBC Distribution Width SD 50.1 fl (35.1-43.9); Red Blood Count 3.32 M/mm3 (4.2-5.4); White Blood Count 13.6 K/mm3 (4.4-11.0)
[2020-02-02] MEDS: Magnesium Sulfate 20 GM/500 ML BAG IV (06:50)
[2020-02-02] MEDS: Ibuprofen 600 MG Tablet PO ×3 (06:54→23:29)
[2020-02-02 07:19] LABS: ALB/GLOB Ratio 0.7 RATIO (0.9-2.4); AST(SGOT) 95 U/L (15-37); Alanine Aminotransfer ALT/SGPT 90 U/L (13-56); Albumin, Serum 2.2 g/dL (3.2-5.0); Alkaline Phosphatase 188 U/L (45-117); Anion Gap 8 (5-15); BUN 9 mg/dL (7-18); BUN/Creat Ratio 9.1 RATIO (10-20); Calcium,Total 6.8 mg/dL (8.5-10.1); Chloride 109 mmol/L (98-107); Creatinine, Serum 0.99 mg/dL (0.55-1.02); EST Glomerular Filtration Rate 67 mL/min (>60); Est Glom Filt Rate - Afr Amer 81 mL/min (>60); Glucose 135 mg/dL (74-106); Magnesium 8.3 mg/dL (1.6-2.6); Potassium 3.8 mmol/L (3.5-5.1); Protein, Total 5.2 g/dL (6.4-8.2); Sodium Level 138 mmol/L (136-145)
[2020-02-02 08:08] LABS: Hep C Antibodies <0.1 s/co ratio (0.0-0.9)
--- NOTE | 2020-02-02 09:05 | NURSING ---
notified Dr Maldonado [phone] that unable to get reflex B/L via 2 nurse checks. slight sluggishness noted to left patella. order to [id number] mag to 1gm/hr and repeat mag level 6 hours from previous mag draw. Nurse called back at 905 and asked about placing SCD's on pt. Ok per Dr Maldonado for SCD's and will let nurse know if she wants to start Lovenox.
[2020-02-02] MEDS: Enoxaparin 40 MG/0.4 ML Syringe SC (11:24)
--- NOTE | 2020-02-02 13:11 | PN_ITS ---
Progress Note PROGRESS NOTE round. Patient sleeping comfortably. AVSS Temp Pulse Resp BP Pulse Ox 02/02/20 11:22 86 118/63 02/02/20 10:15 98.5 F 84 16 110/63 94 02/02/20 10:09 82 110/63 93 02/02/20 09:15 98.4 F 78 16 109/62 94 02/02/20 09:10 98.4 F 78 109/62 02/02/20 08:30 77 93 02/02/20 08:29 98.1 F 74 121/62 H 02/02/20 08:15 98.2 F 74 16 121/62 H 97 02/02/20 07:25 74 121/67 H 96 02/02/20 07:15 98.6 F 73 16 121/67 H 96 02/02/20 06:26 75 125/66 H 02/02/20 06:25 99.1 F 99 02/02/20 06:15 99.2 F H 78 18 125/66 H 99 02/02/20 05:31 81 114/62 02/02/20 05:30 98.5 F 98 02/02/20 05:17 98.6 F 02/02/20 05:16 73 124/62 H 02/02/20 05:15 98.6 F 66 16 124/62 H 99 02/02/20 05:02 99.0 F 88 99 02/02/20 05:01 82 148/69 H 02/02/20 05:00 98.9 F 100 02/02/20 04:46 80 128/63 H 02/02/20 04:45 98.0 F 80 128/63 H 100 02/02/20 04:34 82 100 02/02/20 04:31 97.7 F L 79 139/65 H 02/02/20 04:30 97.7 F L 78 139/95 H 100 02/02/20 04:29 80 100 02/02/20 04:24 89 100 02/02/20 04:23 79 90 02/02/20 04:20 98.1 F 02/02/20 04:19 83 100 02/02/20 04:16 83 128/69 H 02/02/20 04:15 98.1 F 86 16 128/69 H 100 02/02/20 04:14 81 100 02/02/20 04:09 82 100 02/02/20 04:04 84 100 02/02/20 04:03 98.4 F 02/02/20 04:01 86 125/65 H 02/02/20 04:00 98.4 F 100 02/02/20 03:45 97.6 F L 84 136/55 H 97 02/02/20 03:30 97.6 F L 89 137/66 H 97 02/02/20 03:15 97.6 F L 89 18 119/54 L 99 02/02/20 03:01 87 98 02/02/20 02:56 82 97 02/02/20 02:51 88 95 02/02/20 02:50 88 94 02/02/20 02:46 93 97 02/02/20 02:41 91 97 02/02/20 02:36 90 97 02/02/20 02:15 97.8 F 92 16 113/82 H 98 02/02/20 01:15 98.9 F 97 16 113/84 H 100 Labs & Testing WBC 13.6 K/mm3 (4.4-11.0) H 02/02/20 05:55 RBC 3.32 M/mm3 (4.2-5.4) L 02/02/20 05:55 Hgb 10.4 g/dL (12.0-15.0) L 02/02/20 05:55 Hct 32.1 % (37-47) L 02/02/20 05:55 MCV 96.7 fL (81-99) 02/02/20 05:55 MCH 31.3 pg (27.0-32.0) 02/02/20 05:55 MCHC 32.4 g/dL (32-36) 02/02/20 05:55 RDW Std Deviation 50.1 fl (35.1-43.9) H 02/02/20 05:55 RDW Coeff of Paulina 14.1 % (11.6-14.6) 02/02/20 05:55 Plt Count 194 K/mm3 (150-450) 02/02/20 05:55 MPV 10.4 fl (6.2-12.0) 02/02/20 05:55 Immature Gran % (Auto) 1.300 % (0.0-0.9) H 02/01/20 05:20 Neut % (Auto) 82.4 % (47-70) H 02/01/20 05:20 Lymph % (Auto) 13.0 % (19-41) L 02/01/20 05:20 [place] % (Auto) 2.8 % (0-10) 02/01/20 05:20 Eos % (Auto) 0.0 % (0-5) 02/01/20 05:20 Baso % (Auto) 0.5 % (0-1) 02/01/20 05:20 Absolute Neuts (auto) 4.9 X10^3/uL (2.0-7.7) 02/01/20 05:20 Absolute Lymphs (auto) 0.78 X10^3/uL (0.83-4.51) L 02/01/20 05:20 Nucleated RBC % 0 % (0-5) 02/01/20 05:20 PT 12.2 SECONDS (11.7-14.9) 02/01/20 05:20 INR 1.0 02/01/20 05:20 APTT 32.4 Seconds (24.1-36.2) 02/01/20 05:20 Fibrinogen 395 mg/dl (203-444) 02/01/20 05:20 Sodium 138 mmol/L (136-145) 02/02/20 05:55 Potassium 3.8 mmol/L (3.5-5.1) 02/02/20 05:55 Chloride 109 mmol/L (98-107) H 02/02/20 05:55 Carbon Dioxide 21.0 mmol/L (21.0-32.0) 02/02/20 05:55 Anion Gap 8 (5-15) 02/02/20 05:55 BUN 9 mg/dL (7-18) 02/02/20 05:55 Creatinine 0.99 mg/dL (0.55-1.02) 02/02/20 05:55 Estim Creat Clear Calc 76.40 ml/min 02/02/20 05:55 Est GFR (MDRD) Af Amer 81 mL/min (>60) 02/02/20 05:55 Est GFR (MDRD) Non-Af 67 mL/min (>60) 02/02/20 05:55 BUN/Creatinine Ratio 9.1 RATIO (10-20) L 02/02/20 05:55 Glucose 135 mg/dL (74-106) H 02/02/20 05:55 Calcium 6.8 mg/dL (8.5-10.1) L 02/02/20 05:55 Magnesium 8.3 mg/dL (1.6-2.6) H* 02/02/20 05:55 Total Bilirubin 0.40 mg/dL (0.20-1.00) 02/02/20 05:55 AST 95 U/L (15-37) H 02/02/20 05:55 ALT 90 U/L (13-56) H 02/02/20 05:55 Alkaline Phosphatase 188 U/L (45-117) H 02/02/20 05:55 Ammonia 18.0 umol/L (11-32) 01/31/20 18:35 Lactate Dehydrogenase 172 U/L (84-246) 02/01/20 05:20 Total Protein 5.2 g/dL (6.4-8.2) L 02/02/20 05:55 Albumin 2.2 g/dL (3.2-5.0) L 02/02/20 05:55 Globulin 3.0 g/dL (2.2-4.2) 02/02/20 05:55 Albumin/Globulin Ratio 0.7 RATIO (0.9-2.4) L 02/02/20 05:55 Urine Collection Time 24.0 HOURS (24.0) 01/31/20 18:20 Ur Collection Duration 24.0 HOURS (24.0) 01/31/20 18:20 Urine Total Volume 0.80 L 01/31/20 18:20 Timed Urine Volume 850 mL 01/31/20 18:20 Urine Creatinine 129.00 mg/dL (NO RANGE EST.) 01/31/20 18:20 Ur Creatinine 24 Hour 1.10 g/24 HR (0.70-1.90) 01/31/20 18:20 Ur Total Protein 24 Hr 295.8 mg/24HR (<150 MG/24HR) H 01/31/20 18:20 Urine Total Protein 34.8 mg/dL (<11.9) H 01/31/20 18:20 Hepatitis A IgM Ab Negative (Negative) 01/31/20 18:35 Hep Bs Antigen Negative (Negative) 01/31/20 18:35 Hep B Core IgM Ab Negative (Negative) 01/31/20 18:35 Hepatitis C Ab (EIA) <0.1 s/co ratio (0.0-0.9) 01/31/20 18:35 Group B Strep DNA Negative (Negative) 01/31/20 21:25 Specimen Comment Not Reportable 01/31/20 21:25 Blood Type A POSITIVE 02/01/20 10:10 Antibody Screen NEGATIVE 02/01/20 10:10 Vital Signs Temp 98.5 F 02/02/20 10:15 Pulse 86 02/02/20 11:22 Resp 16 02/02/20 10:15 BP 118/63 02/02/20 11:22 Pulse Ox 94 02/02/20 10:15 Intake & Output 01/31/20 02/01/20 02/02/20 23:59 23:59 23:59 Intake Total 4071.65 / 4071.65 3374.09 / 3374.09 Output Total 1050 / 1050 1440 / 1440 Balance 3021.65 / 3021.65 1934.09 / 1934.09 Weight: 73.482 kg Intake: Oral 350 / 350 1000 / 1000 Intake, IV Amount 3721.65 / 3721.65 2374.09 / 2374.09 20GM/500ML 20 gm In 500 ml @ 2 625.82 / 625.82 494.17 / 494.17 GM/HR 50 mls/hr IV .Q10H [facility] Rx #:[id number] Lactated Ringers 1,000 ML @ 50 2000.00 / 2000.00 879.92 / 879.92 mls/hr IV .Q20H [facility]KED[facility] Rx#: [id number] Lactated Ringers 500 ML @ 999 500 / 500 mls/hr IV .Q31M PRN Rx#: [id number] Magnesium Sulfate 4gm/100mL 4 50 / 50 GM/100 ML2 gm In 50 ml @ 300 mls/hr IV X1 ONE Rx#:[id number] Magnesium Sulfate 4gm/100mL 4 100 / 100 GM/100 ML4 gm In 100 ml @ 300 mls/hr IV X1 ONE Rx#:[id number] Omnipen-N 2 GM In 0.9% Normal 400 / 400 Saline 100 ML @ 200 mls/hr IV Q4H [facility] Rx#:[id number] Oxytocin 30 units/NS 500 ml 30 45.83 / 45.83 UNITS/500 ML30 units In 500 ml @ 2 mls/hr IV .Q250H [facility] Rx#: [id number] Oxytocin 30 units/NS 500 ml 30 500.00 / 500.00 UNITS/500 ML30 units In 500 ml @ 334 mls/hr IV .Q1H30M [facility] Rx# :[id number] Oxytocin 30 units/NS 500 ml 30 500 / 500 UNITS/500 ML30 units In 500 ml @ 334 mls/hr IV .Q1H30M [facility] Rx# :[id number] Output: Urine 1050 / 1050 1440 / 1440 Vitals, I/O appropriate. Magnesium decreased to 1g/h for depressed reflexes. Magnesium level pending. STROKE Vital Signs/Narrative: Vital Signs Temp Pulse Resp BP Pulse Ox 02/02/20 11:22 86 118/63 02/02/20 10:15 98.5 F 84 16 110/63 94 02/02/20 10:09 82 110/63 93 02/02/20 09:15 98.4 F 78 16 109/62 94
[2020-02-02] MEDS: Prenatal Vits Tablet 1 TABLET PO (13:34)
[2020-02-02 15:19] LABS: Magnesium 7.4 mg/dL (1.6-2.6)
--- NOTE | 2020-02-02 17:06 | PCM.PN.BLA ---
Progress Note Patient sleeping in room. Vitals stable. Per RN feeling better with mag level lower. Mag currently running at 1g/hr. Cr bumped a little on last CMP, will repeat in 6h from last. Then in AM. Mag off at 0300. STROKE Vital Signs/Narrative: Vital Signs Temp Pulse Resp BP Pulse Ox 02/02/20 16:27 81 98/57 L 02/02/20 16:15 99.2 F H 81 16 98/57 L 96 02/02/20 15:32 98.2 F 81 103/56 L 02/02/20 15:15 98.2 F 81 16 103/56 L 98 02/02/20 14:26 99.1 F 85 105/57 L 02/02/20 14:15 99.4 F H 85 16 105/57 L 96 02/02/20 13:18 79 101/58 L 95 02/02/20 13:17 99.3 F H 02/02/20 13:15 99.4 F H 85 16 101/58 L 96
[2020-02-02] MEDS: Acetaminophen 325 MG Tablet PO (19:09)
[2020-02-02] MEDS: Lactated Ringers 1,000 ML 15 ML IV (19:15)
[2020-02-02 20:04] LABS: ALB/GLOB Ratio 0.8 RATIO (0.9-2.4); AST(SGOT) 220 U/L (15-37); Alanine Aminotransfer ALT/SGPT 154 U/L (13-56); Alkaline Phosphatase 158 U/L (45-117); Anion Gap 7 (5-15); BUN 10 mg/dL (7-18); BUN/Creat Ratio 9.7 RATIO (10-20); Calcium,Total 6.3 mg/dL (8.5-10.1); Chloride 107 mmol/L (98-107); Creatinine, Serum 1.03 mg/dL (0.55-1.02); EST Glomerular Filtration Rate 64 mL/min (>60); Est Glom Filt Rate - Afr Amer 78 mL/min (>60); Estimated Creatinine Clearance 73.43 ml/min; Globulin 2.6 g/dL (2.2-4.2); Glucose 119 mg/dL (74-106); Magnesium 6.7 mg/dL (1.6-2.6); Potassium 4.1 mmol/L (3.5-5.1); Protein, Total 4.6 g/dL (6.4-8.2); Sodium Level 137 mmol/L (136-145)
[2020-02-03] VITALS (14 sets, daily range): BP systolic 98–121; BP diastolic 55–73; PULSE 68–89; RESP 16; TEMP 36.3–37.3; O2SAT 97–99
[2020-02-03] MEDS: Magnesium Sulfate 20 GM/500 ML BAG IV (00:17)
[2020-02-03] MEDS: Acetaminophen 325 MG Tablet PO ×2 (04:15→20:08)
--- NOTE | 2020-02-03 06:27 | NURSING ---
This patient got up at this time, she sat at the edge of the bed and stated she felt good she then stood and took a couple steps in place, stated she felt a little light headed but then after a few minutes she felt okay to walk, pt walked over to rocking chair where she is currently sitting and feeding the infant, pt was given call light and phone and told to call when she wants to go back to bed.
[2020-02-03 06:28] LABS: Hematocrit 27.9 % (37-47); Hemoglobin 9.2 g/dL (12.0-15.0); Mean Corpuscular Hgb 31.5 pg (27.0-32.0); Mean Corpuscular Volume 95.5 fL (81-99); Platelet Count 112 K/mm3 (150-450); RBC Distribution Width CV 14.6 % (11.6-14.6); Red Blood Count 2.92 M/mm3 (4.2-5.4)
[2020-02-03 07:20] LABS: ALB/GLOB Ratio 0.8 RATIO (0.9-2.4); AST(SGOT) 128 U/L (15-37); Alanine Aminotransfer ALT/SGPT 123 U/L (13-56); Albumin, Serum 1.9 g/dL (3.2-5.0); Alkaline Phosphatase 144 U/L (45-117); Anion Gap 3 (5-15); BUN 12 mg/dL (7-18); BUN/Creat Ratio 14.5 RATIO (10-20); Calcium,Total 6.3 mg/dL (8.5-10.1); Chloride 111 mmol/L (98-107); Creatinine, Serum 0.83 mg/dL (0.55-1.02); EST Glomerular Filtration Rate 83 mL/min (>60); Est Glom Filt Rate - Afr Amer 100 mL/min (>60); Estimated Creatinine Clearance 91.12 ml/min; Globulin 2.5 g/dL (2.2-4.2); Glucose 76 mg/dL (74-106); Potassium 3.9 mmol/L (3.5-5.1); Protein, Total 4.4 g/dL (6.4-8.2); Sodium Level 139 mmol/L (136-145)
--- NOTE | 2020-02-03 08:35 | NURSING ---
pt c/o some blurred vision but reports that it is improving
--- NOTE | 2020-02-03 08:40 | PN.OBGYN_ITS ---
Subjective: Denies headaches, vision changes, shortness of breath. She is out of bed for the first time in 3 days this morning and reports her legs feel a little weak, but she feels better with the magnesium discontinued. Denies significant pain or heavy lochia. Objective: AVSS - Physical Exam Vitals/I&O's: Vital Signs Temp Pulse Resp BP Pulse Ox 98.2 F 74 16 107/56 L 97 02/03/20 19:55 02/03/20 19:55 02/03/20 15:02 02/03/20 19:55 02/03/20 19:55 Oxygen Delivery Method Room Air Weight: 73.482 kg Body Mass Index (BMI) 25.3 Intake and Output for Last 24 Hours 02/01/20 02/02/20 02/03/20 23:59 23:59 23:59 Intake Total 4071.65 / 4071.65 4885.50 / 4885.50 454.26 / 454.26 Output Total 1050 / 1050 3590 / 3590 1275 / 1275 Balance 3021.65 / 3021.65 1295.50 / 1295.50 -820.74 / -820.74 General: Alert, Oriented x3, Cooperative, No apparent distress HEENT: Atraumatic, Normocephalic Lungs: Clear to auscultation, Normal air movement Cardiovascular: Regular rate, Regular Rhythm, Normal S1, Normal S2 Abdomen: Soft, Non Tender, Non-Distended, - - Fundus firm and nontender Extremities: No Calf Tenderness, - - b/l pedal edema Neurological: Deep Tendon Reflexes 2+/4 and Symmetrical, Neuro grossly intact, - - no clonus Psych/Mental Status: Normal Affect, Appropriate, Alert and oriented to time, place, person, mood and affect Microbiology Past 72 Hours 01/31/20 Unknown Genital vaginal Group B Streptococcus Culture - Final Group B Beta Streptococcus is not isolated. Laboratory Results 02/03/20 06:00: WBC 11.0, RBC 2.92 L, Hgb 9.2 L, Hct 27.9 L, MCV 95.5, MCH 31.5, MCHC 33.0, RDW Std Deviation 51.0 H, RDW Coeff of Paulina 14.6, Plt Count 112 L, MPV 10.0 02/03/20 06:00: Sodium 139, Potassium 3.9, Chloride 111 H, Carbon Dioxide 25.0, Anion Gap 3 L, BUN 12, Creatinine 0.83, Estim Creat Clear Calc 91.12, Est GFR (MDRD) Af Amer 100, Est GFR (MDRD) Non-Af 83, BUN/Creatinine Ratio 14.5, Glucose 76, Calcium 6.3 L*, Total Bilirubin 0.20, AST 128 H, ALT 123 H, Alkaline Phosphatase 144 H, Total Protein 4.4 L, Albumin 1.9 L, Globulin 2.5, Albumin/Globulin Ratio 0.8 L Current Medications Acetaminophen (Acetaminophen 325 Mg Tablet) 325 - 650 mg PO Q4H PRN PRN PRN Reason: Pain Score 1-3 Last Admin: 02/03/20 20:08 Dose: 650 mg Documented by: Bisacodyl (Bisacodyl 10 Mg Suppository) 10 mg RECTAL UD PRN PRN Reason: If no BM Dibucaine (Dibucaine 30 Gm Tube) 1 applic TOPICAL TID PRN PRN; Protocol PRN Reason: Discomfort Enoxaparin Sodium (Enoxaparin 40 Mg/0.4 Ml Syringe) 40 mg SC DAILY [facility] Last Admin: 02/03/20 09:19 Dose: 40 mg Documented by: Hydrocortisone (Hydrocortisone 2.5% Crm) 1 applic TOPICAL TID PRN PRN; Protocol PRN Reason: Discomfort Calcium Gluconate 1 gm/ N/A 10 mls @ 2 mls/min IV X1 PRN PRN Reason: Magnesium Toxicity Ibuprofen (Ibuprofen 600 Mg Tablet) 600 mg PO Q6H PRN PRN PRN Reason: Pain Score 1-3 Last Admin: 02/03/20 17:55 Dose: 600 mg Documented by: Methylergonovine Maleate (Methylergonovine 0.2 Mg/Ml Ampul) 0.2 mg IM X1 PRN PRN Reason: Excess bleeding/uterine atony Ondansetron HCl (Ondansetron 4 Mg/2 Ml Vial) 4 mg IV Q4H PRN PRN PRN Reason: NAUSEA Last Admin: 02/01/20 14:24 Dose: 4 mg Documented by: Multivit/Folic Acid/Iron ( Vits Tablet) 1 tablet PO DAILY@1200 [facility] Last Admin: 02/03/20 09:19 Dose: 1 tablet Documented by: Senna/Docusate Sodium (Senna/Docusate Sodium 1 Tablet) 1 - 2 tablet PO DAILY PRN PRN PRN Reason: Constipation Simethicone (Simethicone 80 Mg Tablet) 80 mg PO PCHS PRN PRN Reason: Indigestion/Stomach pain Sodium Chloride (0.9% Saline Lock 10 Ml Syringe) 10 - 40 ml IV X1 PRN PRN Reason: SALINE FLUSH Last Admin: 02/03/20 20:08 Dose: 10 ml Documented by: Sodium Chloride (0.9% Saline Lock 10 Ml Syringe) 5 - 15 ml IV UD PRN PRN Reason: SALINE FLUSH Medical Necessity - Tobacco Use Smoking Status: Never smoker Assessment/Plan 34yo PPD#1 s/p /VAVD di-di twin gestation complicated by severe preeclampsia s/p magnesium -BPs remain in normal range -Labs reviewed and appears Cr and LFTs peaked yesterday evening. Plan repeat labs in am. -Continue to monitor -Continue care
[2020-02-03] MEDS: Ibuprofen 600 MG Tablet PO ×3 (08:48→23:58)
[2020-02-03] MEDS: Enoxaparin 40 MG/0.4 ML Syringe SC (09:19)
[2020-02-03] MEDS: Prenatal Vits Tablet 1 TABLET PO (09:19)
--- NOTE | 2020-02-03 12:17 | PCM.PN.OB ---
Subjective: PPD#2 Feeling improved. Swelling in ankles. Lochia minimal. No ALDRICH, vision changes, chest pain, dyspnea, nausea/emesis. - Physical Exam Vitals/I&O's: Vital Signs Temp Pulse Resp BP Pulse Ox 97.3 F L 80 16 108/59 L 97 02/03/20 08:33 02/03/20 08:38 02/03/20 08:33 02/03/20 08:38 02/03/20 02:15 Oxygen Delivery Method Room Air Weight: 73.482 kg Body Mass Index (BMI) 25.3 Intake and Output for Last 24 Hours 02/01/20 02/02/20 02/03/20 23:59 23:59 23:59 Intake Total 4071.65 / 4071.65 4885.50 / 4885.50 454.26 / 454.26 Output Total 1050 / 1050 3590 / 3590 600 / 600 Balance 3021.65 / 3021.65 1295.50 / 1295.50 -145.74 / -145.74 General: Oriented x3, Cooperative, No apparent distress HEENT: Atraumatic, Normocephalic Neck: Supple Lungs: Clear to auscultation Cardiovascular: Regular rate, Regular Rhythm Abdomen: Soft, Non Tender - uterus 2cm below umbilicus Extremities: Edema - 3+ pedal edema Neurological: Cranial nerves II-XII grossly intact, Deep Tendon Reflexes 2+/4 and Symmetrical Psych/Mental Status: Normal Affect, Appropriate Microbiology Past 72 Hours 01/31/20 Unknown Genital vaginal Group B Streptococcus Culture - Final Group B Beta Streptococcus is not isolated. Laboratory Results 02/02/20 13:20: Magnesium 7.4 H* 02/02/20 19:00: Sodium 137, Potassium 4.1, Chloride 107, Carbon Dioxide 23.0, Anion Gap 7, BUN 10, Creatinine 1.03 H, Estim Creat Clear Calc 73.43, Est GFR (MDRD) Af Amer 78, Est GFR (MDRD) Non-Af 64, BUN/Creatinine Ratio 9.7 L, Glucose 119 H, Calcium 6.3 L*, Magnesium 6.7 H*, Total Bilirubin 0.30, AST 220 H, ALT 154 H, Alkaline Phosphatase 158 H, Total Protein 4.6 L, Albumin 2.0 L, Globulin 2.6, Albumin/Globulin Ratio 0.8 L 02/03/20 06:00: WBC 11.0, RBC 2.92 L, Hgb 9.2 L, Hct 27.9 L, MCV 95.5, MCH 31.5, MCHC 33.0, RDW Std Deviation 51.0 H, RDW Coeff of Paulina 14.6, Plt Count 112 L, MPV 10.0 02/03/20 06:00: Sodium 139, Potassium 3.9, Chloride 111 H, Carbon Dioxide 25.0, Anion Gap 3 L, BUN 12, Creatinine 0.83, Estim Creat Clear Calc 91.12, Est GFR (MDRD) Af Amer 100, Est GFR (MDRD) Non-Af 83, BUN/Creatinine Ratio 14.5, Glucose 76, Calcium 6.3 L*, Total Bilirubin 0.20, AST 128 H, ALT 123 H, Alkaline Phosphatase 144 H, Total Protein 4.4 L, Albumin 1.9 L, Globulin 2.5, Albumin/Globulin Ratio 0.8 L Current Medications Acetaminophen (Acetaminophen 325 Mg Tablet) 325 - 650 mg PO Q4H PRN PRN PRN Reason: Pain Score 1-3 Last Admin: 02/03/20 04:15 Dose: 650 mg Documented by: Bisacodyl (Bisacodyl 10 Mg Suppository) 10 mg RECTAL UD PRN PRN Reason: If no BM Dibucaine (Dibucaine 30 Gm Tube) 1 applic TOPICAL TID PRN PRN; Protocol PRN Reason: Discomfort Enoxaparin Sodium (Enoxaparin 40 Mg/0.4 Ml Syringe) 40 mg SC DAILY [facility] Last Admin: 02/03/20 09:19 Dose: 40 mg Documented by: Hydrocortisone (Hydrocortisone 2.5% Crm) 1 applic TOPICAL TID PRN PRN; Protocol PRN Reason: Discomfort Calcium Gluconate 1 gm/ N/A 10 mls @ 2 mls/min IV X1 PRN PRN Reason: Magnesium Toxicity Ibuprofen (Ibuprofen 600 Mg Tablet) 600 mg PO Q6H PRN PRN PRN Reason: Pain Score 1-3 Last Admin: 02/03/20 08:48 Dose: 600 mg Documented by: Methylergonovine Maleate (Methylergonovine 0.2 Mg/Ml Ampul) 0.2 mg IM X1 PRN PRN Reason: Excess bleeding/uterine atony Ondansetron HCl (Ondansetron 4 Mg/2 Ml Vial) 4 mg IV Q4H PRN PRN PRN Reason: NAUSEA Last Admin: 02/01/20 14:24 Dose: 4 mg Documented by: Multivit/Folic Acid/Iron ( Vits Tablet) 1 tablet PO DAILY@1200 [facility] Last Admin: 02/03/20 09:19 Dose: 1 tablet Documented by: Senna/Docusate Sodium (Senna/Docusate Sodium 1 Tablet) 1 - 2 tablet PO DAILY PRN PRN PRN Reason: Constipation Simethicone (Simethicone 80 Mg Tablet) 80 mg PO PCHS PRN PRN Reason: Indigestion/Stomach pain Sodium Chloride (0.9% Saline Lock 10 Ml Syringe) 10 - 40 ml IV X1 PRN PRN Reason: SALINE FLUSH Sodium Chloride (0.9% Saline Lock 10 Ml Syringe) 5 - 15 ml IV UD PRN PRN Reason: SALINE FLUSH Medical Necessity - Tobacco Use Smoking Status: Never smoker Assessment/Plan 34 yo PPD#2 s/p /VAVD di/di twins. delivery for severe pre-eclampsia. Acute kidney injury improving today. LFTs also down trending. Platelets stable. Vitals stable. Plan for repeat labs qAM. Patient will need a visit in office 1w from delivery. Continue lovenox qD. Likely home PPD4
--- NOTE | 2020-02-03 14:09 | NURSING ---
void missed hat
[2020-02-03] MEDS: 0.9% Saline Lock 10 ML Syringe IV (20:08)
[2020-02-04 01:15] VITALS: BP 104/50; PULSE 61; RESP 16; TEMP 36.8
[2020-02-04 01:17] VITALS: BP 104/50; PULSE 61; TEMP 36.8
[2020-02-04 05:28] LABS: Hematocrit 33.4 % (37-47); Hemoglobin 10.8 g/dL (12.0-15.0); Mean Corp Hgb Conc 32.3 g/dL (32-36); Mean Corpuscular Hgb 31.4 pg (27.0-32.0); Mean Corpuscular Volume 97.1 fL (81-99); Mean Platelet Vol. 9.7 fl (6.2-12.0); Platelet Count 139 K/mm3 (150-450); RBC Distribution Width CV 14.9 % (11.6-14.6); RBC Distribution Width SD 52.5 fl (35.1-43.9); Red Blood Count 3.44 M/mm3 (4.2-5.4); White Blood Count 10.3 K/mm3 (4.4-11.0)
[2020-02-04 05:45] LABS: ALB/GLOB Ratio 0.7 RATIO (0.9-2.4); AST(SGOT) 68 U/L (15-37); Alanine Aminotransfer ALT/SGPT 107 U/L (13-56); Albumin, Serum 2.2 g/dL (3.2-5.0); Alkaline Phosphatase 159 U/L (45-117); Anion Gap 4 (5-15); BUN 10 mg/dL (7-18); BUN/Creat Ratio 15.8 RATIO (10-20); Calcium,Total 7.8 mg/dL (8.5-10.1); Chloride 113 mmol/L (98-107); Creatinine, Serum 0.63 mg/dL (0.55-1.02); EST Glomerular Filtration Rate 113 mL/min (>60); Est Glom Filt Rate - Afr Amer 136 mL/min (>60); Estimated Creatinine Clearance 120.05 ml/min; Glucose 68 mg/dL (74-106); Potassium 4.5 mmol/L (3.5-5.1); Protein, Total 5.2 g/dL (6.4-8.2); Sodium Level 143 mmol/L (136-145)
[2020-02-04] MEDS: Ibuprofen 600 MG Tablet PO ×2 (06:00→14:48)
--- NOTE | 2020-02-04 08:46 | PCM.DC.SUM ---
Discharge Date and Diagnosis Date of Admission: 01/31/20 Date of Discharge: 02/04/20 - Primary Discharge Diagnosis Acute Problems: Preeclampsia, severe Dichorionic diamnionic twin gestation delivered vaginally Hospital Course and Treatment Operations: None Procedures: None Summary of Care Provided: The patient is a 34 year old F 3 para 2001 admitted at 36 2/7 weeks gestation with dichorionic diamnionic twin gestation for observation and betamethasone to r/o preeclampsia. Her labs were concerning for preeclampsia with severe features and induction of labor and magnesium seizure prophylaxis was started on hospital day #2. She received pitocin and amniotomy with progression to FD and delivered twins vertex-vertex vaginally on hospital day #3. Her labs were trended with thrombocytopenia noted. LFTs peaked and with mild renal insufficiency reaching its ravi the evening of delivery. Her magnesium was discontinued at 24h on hospital day #4. She was out of bed, ambulating, voiding without difficulty and remained asymptomatic. She was discharged to home on day #2 (Hospital day #5). Subjective: Denies headache, vision changes, shortness of breath, chest pain or abdominal pain. Denies heavy lochia. She feels well. She is and that is going well. No complaints this morning. - Physical Exam Vitals/I&O's: Vital Signs Temp Pulse Resp BP Pulse Ox 98.2 F 61 16 104/50 L 98 02/04/20 01:17 02/04/20 01:17 02/04/20 01:15 02/04/20 01:17 02/03/20 19:55 Oxygen Delivery Method Room Air Weight: 73.482 kg Body Mass Index (BMI) 25.3 Intake and Output for Last 24 Hours 02/02/20 02/03/20 02/04/20 23:59 23:59 23:59 Intake Total 4885.50 / 4885.50 454.26 / 454.26 Output Total 3590 / 3590 1275 / 1275 Balance 1295.50 / 1295.50 -820.74 / -820.74 General: Alert, Oriented x3, Cooperative, No apparent distress HEENT: Atraumatic, Normocephalic Lungs: Clear to auscultation, Normal air movement Cardiovascular: Regular rate, Regular Rhythm, Normal S1, Normal S2 Abdomen: Soft, Non Tender, Non-Distended, - - Fundus firm and nontender Extremities: No edema, No Calf Tenderness Neurological: Neuro grossly intact Psych/Mental Status: Normal Affect, Appropriate, Alert and oriented to time, place, person, mood and affect Microbiology Past 72 Hours 01/31/20 Unknown Genital vaginal Group B Streptococcus Culture - Final Group B Beta Streptococcus is not isolated. Laboratory Results 02/04/20 05:20: WBC 10.3, RBC 3.44 L, Hgb 10.8 L, Hct 33.4 L, MCV 97.1, MCH 31.4, MCHC 32.3, RDW Std Deviation 52.5 H, RDW Coeff of Paulina 14.9 H, Plt Count 139 L, MPV 9.7 02/04/20 05:20: Sodium 143, Potassium 4.5, Chloride 113 H, Carbon Dioxide 26.0, Anion Gap 4 L, BUN 10, Creatinine 0.63, Estim Creat Clear Calc 120.05, Est GFR (MDRD) Af Amer 136, Est GFR (MDRD) Non-Af 113, BUN/Creatinine Ratio 15.8, Glucose 68 L, Calcium 7.8 L, Total Bilirubin 0.20, AST 68 H, ALT 107 H, Alkaline Phosphatase 159 H, Total Protein 5.2 L, Albumin 2.2 L, Globulin 3.0, Albumin/Globulin Ratio 0.7 L Current Medications Acetaminophen (Acetaminophen 325 Mg Tablet) 325 - 650 mg PO Q4H PRN PRN PRN Reason: Pain Score 1-3 Last Admin: 02/03/20 20:08 Dose: 650 mg Documented by: Bisacodyl (Bisacodyl 10 Mg Suppository) 10 mg RECTAL UD PRN PRN Reason: If no BM Dibucaine (Dibucaine 30 Gm Tube) 1 applic TOPICAL TID PRN PRN; Protocol PRN Reason: Discomfort Enoxaparin Sodium (Enoxaparin 40 Mg/0.4 Ml Syringe) 40 mg SC DAILY MAKEDA Last Admin: 02/03/20 09:19 Dose: 40 mg Documented by: Hydrocortisone (Hydrocortisone 2.5% Crm) 1 applic TOPICAL TID PRN PRN; Protocol PRN Reason: Discomfort Calcium Gluconate 1 gm/ N/A 10 mls @ 2 mls/min IV X1 PRN PRN Reason: Magnesium Toxicity Ibuprofen (Ibuprofen 600 Mg Tablet) 600 mg PO Q6H PRN PRN PRN Reason: Pain Score 1-3 Last Admin: 02/04/20 06:00 Dose: 600 mg Documented by: Methylergonovine Maleate (Methylergonovine 0.2 Mg/Ml Ampul) 0.2 mg IM X1 PRN PRN Reason: Excess bleeding/uterine atony Ondansetron HCl (Ondansetron 4 Mg/2 Ml Vial) 4 mg IV Q4H PRN PRN PRN Reason: NAUSEA Last Admin: 02/01/20 14:24 Dose: 4 mg Documented by: Multivit/Folic Acid/Iron ( Vits Tablet) 1 tablet PO DAILY@1200 MAKEDA Last Admin: 02/03/20 09:19 Dose: 1 tablet Documented by: Senna/Docusate Sodium (Senna/Docusate Sodium 1 Tablet) 1 - 2 tablet PO DAILY PRN PRN PRN Reason: Constipation Simethicone (Simethicone 80 Mg Tablet) 80 mg PO PCHS PRN PRN Reason: Indigestion/Stomach pain Sodium Chloride (0.9% Saline Lock 10 Ml Syringe) 10 - 40 ml IV X1 PRN PRN Reason: SALINE FLUSH Last Admin: 02/03/20 20:08 Dose: 10 ml Documented by: Sodium Chloride (0.9% Saline Lock 10 Ml Syringe) 5 - 15 ml IV UD PRN PRN Reason: SALINE FLUSH Discharge Diet: No Restrictions Discharge Activity: Return to Normal Activity, May Shower, May Take a Tub Bath May resume sexual activity in: 6 weeks Lifting Restrict to (lbs):: 20 Call your doctor if you observe: Fever of 101 or Higher, Inability to urinate, Inability to have a bowel movement, Using more than one pad per hour, Shortness of breath, Chest pain, Calf discomfort, Uncontrolled pain, - - Headache, vision changes Home Medications: Medications to take at Discharge Vit No.130/Iron/Folic [ Tablet] 1 tab PO DAILY 01/21/20 Ibuprofen [Motrin] 600 mg PO TID PRN #30 tab 02/04/20 Following Prescriptions Were Given to Patient: Ibuprofen [Motrin] 600 mg PO TID PRN #30 tab PRN Reason: pain 1-12/23 Transmission Status: Pending to [id number] Primary Care Physician: Care Physician,No Primary [Primary Care Provider] - Please Follow Up With: Jesica Dalal DO When: 7-10 days Disposition: Home Patient Condition:: Good Medical Necessity - Tobacco Use Smoking Status: Never smoker Meaningful Use Info Meaningful Use Diagnoses (Choose all that apply): None applicable
[2020-02-04 08:50] VITALS: BP 119/64; PULSE 68; RESP 18; TEMP 36.5
[2020-02-04 09:03] VITALS: BP 119/64; PULSE 68; TEMP 36.5
[2020-02-04] MEDS: Senna/Docusate Sodium 1 Tablet PO (09:04)
[2020-02-04] MEDS: Acetaminophen 325 MG Tablet PO ×2 (09:04→17:56)
[2020-02-04] MEDS: 0.9% Saline Lock 10 ML Syringe IV (09:05)
[2020-02-04] MEDS: Prenatal Vits Tablet 1 TABLET PO (10:27)
[2020-02-04] MEDS: Enoxaparin 40 MG/0.4 ML Syringe SC (10:27)
[2020-02-04 14:40] VITALS: BP 102/60; PULSE 71; RESP 16; TEMP 36.8
[2020-02-04 14:47] VITALS: BP 102/60; PULSE 71; TEMP 36.8
--- NOTE | 2020-02-08 17:17 | NURSING ---
Doing well , states everyone did wonderful. pumping and giving pumped milk for twins. Breasts are full.
== END 2020-02-04 18:30 | disposition home or self-care (01) | DRG 806 ==
LOC: OBT 02-01 07:48 → WP 02-01 07:48
PROVIDERS: Obstetrics & Gynecology; Student in an Organized Health Care Education/Training Program; Admitting Provider Obstetrics & Gynecology; Referring Provider Obstetrics & Gynecology; Visit Provider Obstetrics & Gynecology
DX: O14.14 Severe pre-eclampsia complicating childbirth (principal); O99.113 Other diseases of the blood and blood-forming organs and certain disorders involving the immune mechanism complicating pregnancy, third trimester; Z37.2 Twins, both liveborn; O99.12 Other diseases of the blood and blood-forming organs and certain disorders involving the immune mechanism complicating childbirth; Z3A.36 36 weeks gestation of pregnancy; O30.043 Twin pregnancy, dichorionic/diamniotic, third trimester; D69.6 Thrombocytopenia, unspecified; O40.3XX0 Polyhydramnios, third trimester, not applicable or unspecified; O76 Abnormality in fetal heart rate and rhythm complicating labor and delivery; O72.1 Other immediate postpartum hemorrhage
CPT/HCPCS: 36415; 59025; 59050; 80053; 80074; 82140; 82570; 83615; 83735; 84156; 85025; 85027; 85384; 85610; 85730; 86850; 86900; 86901; 87081; 87653; 96372; 99218; J7120; A4216; G0378; J0702; J2405

== ENCOUNTER → 2020-02-13 14:55 | Outpatient (CLI) | payer SELFPAY ==
[2020-01-31 18:44] VITALS: BMI 25.3
[2020-02-13 15:22] LABS: Hematocrit 35.2 % (37-47); Hemoglobin 10.9 g/dL (12.0-15.0); Mean Corpuscular Hgb 30.2 pg (27.0-32.0); Mean Corpuscular Volume 97.5 fL (81-99); Mean Platelet Vol. 9.2 fl (6.2-12.0); Platelet Count 400 K/mm3 (150-450); RBC Distribution Width CV 13.6 % (11.6-14.6); RBC Distribution Width SD 49.2 fl (35.1-43.9); Red Blood Count 3.61 M/mm3 (4.2-5.4); White Blood Count 8.9 K/mm3 (4.4-11.0)
[2020-02-13 15:35] LABS: ALB/GLOB Ratio 0.9 RATIO (0.9-2.4); AST(SGOT) 18 U/L (15-37); Alanine Aminotransfer ALT/SGPT 41 U/L (13-56); Albumin, Serum 3.3 g/dL (3.2-5.0); Alkaline Phosphatase 140 U/L (45-117); Anion Gap 3 (5-15); BUN 22 mg/dL (7-18); BUN/Creat Ratio 34.8 RATIO (10-20); Calcium,Total 9.2 mg/dL (8.5-10.1); Chloride 111 mmol/L (98-107); Creatinine, Serum 0.63 mg/dL (0.55-1.02); EST Glomerular Filtration Rate 113 mL/min (>60); Est Glom Filt Rate - Afr Amer 136 mL/min (>60); Globulin 3.5 g/dL (2.2-4.2); Glucose 98 mg/dL (74-106); LDH 215 U/L (84-246); Potassium 3.9 mmol/L (3.5-5.1); Protein, Total 6.8 g/dL (6.4-8.2); Sodium Level 142 mmol/L (136-145)
== END ==
PROVIDERS: Visit Provider Student in an Organized Health Care Education/Training Program
DX: O14.10 Severe pre-eclampsia, unspecified trimester (principal); Z3A.00 Weeks of gestation of pregnancy not specified
CPT/HCPCS: 36415; 80053; 83615; 85027

== ENCOUNTER → 2022-01-06 | Outpatient (CLI) | payer SELFPAY ==
[2022-01-06 19:42] LABS: Follicle Stimulating Hormone 2.6 mIU/mL; Luteinizing Hormone 1.7 mIU/mL; Prolactin 9.9 ng/mL; T4 Free Direct 0.86 ng/dL (0.76-1.46); Thyroid Stim Hormone (TSH) 1.27 uIU/mL (0.358-3.74)
[2022-01-16 15:39] LABS: HPV APTIMA, High Risk Negative (Negative)
== END | disposition home or self-care (01) ==
PROVIDERS: Visit Provider Student in an Organized Health Care Education/Training Program
DX: Z12.4 Encounter for screening for malignant neoplasm of cervix (principal); N93.9 Abnormal uterine and vaginal bleeding, unspecified
CPT/HCPCS: 36415; 83001; 83002; 84146; 84439; 84443; 87624; 88175; G0145

== ENCOUNTER 2022-07-30 18:52 | Emergency (ER) | payer SELFPAY, OTHER ==
[2022-07-30 18:53] VITALS: BP 129/78; PULSE 96; RESP 18; TEMP 36.3; O2SAT 100; BMI 23.5
[2022-07-30 19:29] LABS: Bacteria 0 SEEN /hpf (None Seen); Mucous, Urine 0 SEEN /hpf (<or=2+); Red Blood Cells-Urine 0 SEEN /hpf (0-5); Squamous Epithelial Cells - UA 0 SEEN /hpf (5-10); White Blood Cells 0 SEEN /hpf (0-5)
[2022-07-30 19:30] LABS: Color, Urine Yellow (Yellow); Glucose, Dipstick Normal (Normal); Ketone-Dipstick Negative (Negative); Leukocyte Esterase-Dipstick Negative /ul (Negative); Nitrite-Dipstick Negative (Negative); Occult Blood-Urine 10 /ul (Negative); Protein-Dipstick 15 mg/dl (Negative); Urine Bilirubin Dipstick Negative (Negative); Urine Clarity Clear (Clear); Urine Urobilinogen Normal (Normal)
--- NOTE | 2022-07-30 19:50 | EX.ED.DYSGE1 ---
HPI History of Present Illness Chief Complaint: Flank Pain Informant: patient Narrative Narrative: Patient presents with right flank pain. Patient states that the pain started this morning rather suddenly. But she took some meds and then went about her day and it was normal. Its been waxing and waning since. It was in the right flank to lower quadrant then it came back more in the posterior right flank and now it is moving back down again. She has had a couple soft stools over the last couple days but she has been eating and drinking normally. She had nausea when the pain was bad but none now. No fevers or chills. No vomiting. Last menstrual cycle was about 5 days ago and normal. No pelvic discharge or pain. She has had a kidney stone but it was about 6 or 7 years ago. She has had some mild frequent urination but no hematuria or dysuria. No fevers. PFSH PFSH Home Medications vits no.130-ferrous fum 27 mg iron-folic acid 800 mcg tablet 1 tab PO DAILY Check with primary doctor 01/21/20 [History Last Taken 01/30/20 21:00] ibuprofen 600 mg tablet 600 mg PO TID PRN pain 1-12/23 #30 tabs 02/04/20 [Rx Last Taken Unknown] amoxicillin 875 mg-potassium clavulanate 125 mg tablet tab 07/30/22 [History Last Taken Unknown] hydrocodone-acetaminophen 5-325mg 5mg-325mg 1 tab PO Q6H PRN PRN Pain 3 days #10 TABLETS 07/30/22 [Rx Last Taken Unknown] naproxen 500 mg tablet 500 mg PO BID #14 tabs 07/30/22 [Rx Last Taken Unknown] ondansetron 4 mg disintegrating tablet 4 mg PO Q8H PRN PRN Nausea #10 tabs 07/30/22 [Rx Last Taken Unknown] tamsulosin 0.4 mg capsule (Flomax) 0.4 mg PO DAILY #7 caps 07/30/22 [Rx Last Taken Unknown] Allergy/AdvReac Type Severity Reaction Status Date / Time sulfamethoxazole Allergy Hives Verified 07/30/22 18:53 [From ] trimethoprim [From ] Allergy Hives Verified 07/30/22 18:53 Social History Smoking Status: Never smoker ROS ROS ED ROS Narrative A complete review of systems was performed and is negative except as documented in the history of present illness. Some specific details below. Constitutional: No recent fevers or chills. No malaise. EYE: No visual complaints or pain. ENT: No difficulty swallowing. No swelling. No pain. CV: No chest pain or palpitations. Respiratory: No dyspnea. No hemoptysis. No difficulty taking breaths. GI: Please see history of present illness. : No dysuria or hematuria. Mild frequency. See history of present illness Musculoskeletal: No recent trauma. No pains. She has some flank pain but it seems more abdominal than back. Skin: No rash. Nondiaphoretic. Neuro: No weakness or numbness. Endocrine: No polyuria or polydipsia. EXAM Physical Exam Narrative Exam Narrative: CONSTITUTIONAL: Patient is nontoxic in appearance. The patient looks comfortable. She is actually not having significant pain right now but just of a bit of soreness. HEENT: No notable trauma. Mucous membranes moist. No sinus tenderness. No indication of pain with swallowing. EYES: No conjunctival injection. No proptosis. CARDIOVASCULAR: Regular rate. Regular rhythm. No notable murmur. No JVD. RESPIRATORY: No respiratory distress. Breathing is unlabored. No wheezes. No rhonchi. No rales. No pain with a deep breath. GASTROINTESTINAL: Not distended. Bowel sounds are normal. No tenderness. No guarding. No rebound. No palpable mass. No bruit. Despite her symptoms, pressing on the abdomen does not hurt. She states it feels deeper. GENITOURINARY: No tenderness over the bladder. Even though she has no abdominal pain she does have some mild right CVA tenderness. But no vesicles or rash are seen anywhere along the area of pain. MUSCULOSKELETAL: Atraumatic. No peripheral edema. No cord. No tenderness along the deep venous system. No asymmetry. NEUROLOGICAL: Patient is alert and appropriate. No focal deficit noted. SKIN: No noted rashes. No diaphoresis. PSYCHIATRIC: Patient is calm. Mood is appropriate. Const Vital Signs: 07/30/22 18:53 07/30/22 19:46 Temperature 97.4 F L Temperature Source Temporal Pulse Rate 96 Respiratory Rate 18 Respiratory Effort Normal Non-Labored Respiratory Pattern Normal Blood Pressure 129/78 H Blood Pressure Mean 95 Pulse Ox 100 Oxygen Delivery Method Room Air MDM MDM MDM Narrative Medical decision making narrative: Patient CBC shows no acute process. is negative. Electrolytes showed no marked abnormalities Urinalysis is clean graph my independent interpretation of her CT scan of the abdomen showed hydronephrosis more on the right and the right had about a 4 mm distal UVJ stone. This is similar to the reading by radiology but they measured closer to 3-1/2 mm. I rechecked the patient. She is asymptomatic now. Statistically her stone should pass. We discussed reasons to return. We will get her meds to go and follow-up. Lab Data Attestation: I reviewed the patient's lab results. Labs: Laboratory Results - last 24 hr 07/30/22 07/30/22 07/30/22 19:25 20:00 20:00 WBC 7.3 RBC 4.24 Hgb 12.3 Hct 38.4 MCV 90.6 MCH 29.0 MCHC 32.0 RDW Std Deviation 41.6 RDW Coeff of Paulina 12.7 Plt Count 326 MPV 9.7 Immature Gran % (Auto) 0.300 Neut % (Auto) 57.3 Lymph % (Auto) 32.3 [place] % (Auto) 7.0 Eos % (Auto) 2.1 Baso % (Auto) 1.0 Absolute Neuts (auto) 4.2 Absolute Lymphs (auto) 2.35 Nucleated RBC % 0 Sodium Potassium Chloride Carbon Dioxide Anion Gap BUN Creatinine Estim Creat Clear Calc Est GFR (MDRD) Af Amer Est GFR (MDRD) Non-Af BUN/Creatinine Ratio Glucose Calcium Serum , Qual NEGATIVE Urine Color Yellow Urine Clarity Clear Urine pH 7.0 Ur Specific [place] 1.010 Urine Protein 15 H Urine Glucose (UA) Normal Urine Ketones Negative Urine Occult Blood 10 H Urine Nitrite Negative Urine Bilirubin Negative Urine Urobilinogen Normal Ur Leukocyte Esterase Negative Urine RBC 0 SEEN Urine WBC 0 SEEN Ur Squamous Epith Cells 0 SEEN Urine Bacteria 0 SEEN Urine Mucus 0 SEEN 07/30/22 20:00 WBC RBC Hgb Hct MCV MCH MCHC RDW Std Deviation RDW Coeff of Paulina Plt Count MPV Immature Gran % (Auto) Neut % (Auto) Lymph % (Auto) [place] % (Auto) Eos % (Auto) Baso % (Auto) Absolute Neuts (auto) Absolute Lymphs (auto) Nucleated RBC % Sodium 142 Potassium 3.7 Chloride 108 H Carbon Dioxide 28.0 Anion Gap 6 BUN 13 Creatinine 0.77 Estim Creat Clear Calc 96.33 Est GFR (MDRD) Af Amer 107 Est GFR (MDRD) Non-Af 88 BUN/Creatinine Ratio 16.8 Glucose 82 Calcium 9.4 Serum , Qual Urine Color Urine Clarity Urine pH Ur Specific [place] Urine Protein Urine Glucose (UA) Urine Ketones Urine Occult Blood Urine Nitrite Urine Bilirubin Urine Urobilinogen Ur Leukocyte Esterase Urine RBC Urine WBC Ur Squamous Epith Cells Urine Bacteria Urine Mucus Radiography Diagnostic Testing: Clinical Impression(s) from Imaging Studies Abdomen/Pelvis CT 07/30/22 20:49 IMPRESSION: 0.35 cm right UVJ calculus with obstructive uropathy right kidney and right ureter detailed above. Bilateral nonobstructing renal calculi detailed body of report. Electronically Signed: Jacob Morejon MD, [place]ANN[place] at 21:05 EDT Reading Location ID and State: [facility] / [place] Tel , Service support , Discharge Plan Triage Chief Complaint: Flank Pain ED Provider: Edgar Hightower Dx/Rx/DC Orders Clinical Impression: Kidney stone on right side, Hydronephrosis, right Instructions: ED Kidney Stone w/ Colic Prescriptions: New hydrocodone-acetaminophen [hydrocodone-acetaminophen] 5-325 mg tablet 1 tab PO Q6H PRN PRN (Reason: Pain) 3 Days Qty: 10 0RF naproxen 500 mg tablet 500 mg PO BID Qty: 14 0RF ondansetron [ondansetron] 4 mg tablet,disintegrating 4 mg PO Q8H PRN PRN (Reason: Nausea) Qty: 10 0RF tamsulosin [Flomax] 0.4 mg capsule 0.4 mg PO DAILY Qty: 7 0RF No Action vit no.[id number] 1 EACH tablet 1 tab PO DAILY ibuprofen 600 MG tablet 600 mg PO TID PRN (Reason: pain -12/23) Qty: 30 0RF amoxicillin-pot clavulanate 875-125 mg tablet Label Comments: TAKE 1 TABLET BY MOUTH TWICE DAILY FOR 5 DAYS Primary Care Provider: Care Physician,No Primary Referrals: Nirmala Merritt MD [Med Staff - Active Staff] - 3-5 Days Care Physician,No Primary [Primary Care Provider] - Disposition Disposition: Home, Self Care
[2022-07-30] MEDS: 0.9% Normal Saline 1,000 ML 1000 ML IV (20:10)
[2022-07-30] MEDS: Ketorolac 15 MG/ML Vial IV (20:12)
[2022-07-30] MEDS: Ondansetron 4 MG/2 ML Vial IV (20:12)
[2022-07-30] MEDS: Morphine 4 MG/ML Syringe IV (20:12)
[2022-07-30 20:23] LABS: Absolute Lymphocyte Count 2.35 X10^3/uL (0.83-4.51); Absolute Neutrophil Count 4.2 X10^3/uL (2.0-7.7); Basophil# 0.07 X10^3/uL; Eosinophil# 0.15 X10^3/uL; Eosinophils% 2.1 % (0-5); Hematocrit 38.4 % (37-47); Hemoglobin 12.3 g/dL (12.0-15.0); Lymphocyte # 2.35 X10^3/ul (0.83-4.51); Lymphocyte % 32.3 % (19-41); Mean Corpuscular Volume 90.6 fL (81-99); Mean Platelet Vol. 9.7 fl (6.2-12.0); Monocyte# 0.51 X10^3/uL; NRBC Flagged by Analyzer 0 % (0-5); Neutrophil # 4.18 X10^3/uL (2.7-7.7); Neutrophil % 57.3 % (47-70); Platelet Count 326 K/mm3 (150-450); RBC Distribution Width CV 12.7 % (11.6-14.6); RBC Distribution Width SD 41.6 fl (35.1-43.9); Red Blood Count 4.24 M/mm3 (4.2-5.4); White Blood Count 7.3 K/mm3 (4.4-11.0)
[2022-07-30 20:34] LABS: Internal QC Validated? YES +Cl - CLEAR BKGD; Pregnancy, Serum, hCG Quali. NEGATIVE Negative
[2022-07-30 20:36] LABS: Anion Gap 6 (5-15); BUN 13 mg/dL (7-18); BUN/Creat Ratio 16.8 RATIO (10-20); Calcium,Total 9.4 mg/dL (8.5-10.1); Chloride 108 mmol/L (98-107); Creatinine, Serum 0.77 mg/dL (0.55-1.02); EST Glomerular Filtration Rate 88 mL/min (>60); Est Glom Filt Rate - Afr Amer 107 mL/min (>60); Estimated Creatinine Clearance 96.33 ml/min; Glucose 82 mg/dL (74-106); Potassium 3.7 mmol/L (3.5-5.1); Sodium Level 142 mmol/L (136-145)
--- NOTE | 2022-07-30 20:49 | CT_ITS ---
INDICATION: Right flank pain EXAMINATION: CT ABDOMEN AND PELVIS WITHOUT CONTRAST - CT Abdomen And Pelvis W/O Contrast Injection TECHNIQUE: Helically acquired images were obtained of the abdomen and pelvis without oral or IV contrast. A radiation dose optimization technique was used for this scan. IV Contrast dosage and agent: None. Oral contrast: None. RADIATION DOSAGE (If Supplied By Facility): CTDIvol = ( 7.00 ) mGy, DLP = ( 344.69 ) mGycm COMPARISON: FINDINGS: LOWER CHEST: Lung bases are clear. No cardiomegaly or pericardial effusion. LIVER: Homogeneous. No focal mass. GALLBLADDER AND BILIARY TREE: No calcified gallstones. No gallbladder distension or wall edema. No intra- or extrahepatic biliary ductal dilation. PANCREAS: No focal cystic or solid mass. SPLEEN: Normal size without focal cystic or solid mass. ADRENAL GLANDS: No nodules. KIDNEYS AND URETERS: 2 mm nonobstructing right midpole calculus, 0.15 cm nonobstructing left midpole calculus. Normal variant extrarenal pelves with mild bilateral hydronephrosis. Moderate right hydroureter. This extends to the right UVJ at which site there is an obstructing calculus 0.35 cm. Left ureter is nondilated. PERITONEUM: No ascites or free air. No other fluid collection. BOWEL: No evidence of acute appendicitis. No stomach or bowel distension. No focal inflammatory change. LYMPH NODES: No enlarged mesenteric or retroperitoneal lymph nodes. VESSELS: Aorta is non-dilated. URINARY BLADDER: Unremarkable. REPRODUCTIVE ORGANS: No pelvic masses. ABDOMINAL WALL: No discrete abdominal or pelvic wall hernia. BONES: No lytic or blastic abnormality. CT/Abdomen/Pelvis without Cont IMPRESSION: 0.35 cm right UVJ calculus with obstructive uropathy right kidney and right ureter detailed above. Bilateral nonobstructing renal calculi detailed body of report. Electronically Signed: Jacob Morejon MD, [place] at 21:05 EDT Reading Location ID and State: [facility] / [place] Tel , Service support ,
[2022-07-30 21:38] VITALS: BP 112/72; PULSE 69; RESP 16; O2SAT 99
== END 2022-07-30 21:52 | disposition home or self-care (01) ==
PROVIDERS: Emergency Provider Emergency Medicine; Visit Provider Emergency Medicine
DX: N13.2 Hydronephrosis with renal and ureteral calculous obstruction (principal)
CPT/HCPCS: 74176; 80048; 81001; 84703; 85025; 96361; 96374; 96375; 99282; J2405